=== PATIENT | female | born 1985 | race Caucasian/White ===

== ENCOUNTER 2025-04-02 19:52 | Inpatient (IN) | payer SELFPAY ==
[2025-04-02] VITALS (30 sets, daily range): BP systolic 104–113; BP diastolic 59–73; PULSE 78–95; RESP 12–26; TEMP 36.3; O2SAT 98–100
--- NOTE | 2025-04-02 20:21 | DI.CT_ITS ---
Exam(s) CT ABDOMEN PELVIS W EXAM: CT ABDOMEN PELVIS W CLINICAL HISTORY: diffuse abd pain, N, V TECHNIQUE: Imaging Protocol: Axial computed tomography images with coronal and sagittal reformatted images were created and reviewed. CONTRAST MATERIAL: Intravenous: Omnipaque 350 Contrast volume:75 mL Oral: No COMPARISON: CT RENAL COLIC WO CONTRAST from 04/20/2011 CT ABD PELVIS WITH CONTRAST from 02/05/2017 CT ABD PELVIS WITH CONTRAST from 02/05/2017 FINDINGS: ABDOMEN: Lung Bases: There is a small paraesophageal hernia. Liver: Normal density. No measurable mass. Portal, Superior Mesenteric, and Splenic Veins: Unremarkable. Gallbladder and Biliary Tract: Status post cholecystectomy. Stable appearance of the bile ducts. Pancreas: Normal density, no abnormal calcifications or inflammatory process. Spleen: Normal. Adrenals: No masses seen. Kidneys: Normal size, contour and axis. No radiodense stones or obstructive uropathy. No masses seen. Abdominal Aorta: Abdominal portion non-dilated. Bowel: The bowel is predominantly collapsed, but there are fluid-filled loops of small and large bowel present. There is question of mild wall thickening in loops of small bowel and large bowel. No evidence of bowel obstruction is seen. There is no evidence of an appendicitis. There is a 1.7 x 1.9 cm rounded soft tissue density in the left lower quadrant inferior to the sigmoid colon and anterior to the area of the left ovary (series 8, image 78). It appears to be in contact with the adjacent sigmoid colon. There is surrounding inflammation. Peritoneal Cavity: There is a small amount of pelvic ascites and a small amount of perihepatic ascites. No free air. Lymph Nodes: Within normal limits. Bones: Within normal limits for the patient's age. Soft Tissues: Unremarkable. PELVIS: Bladder: Symmetric distention, no gross wall thickening. Reproductive Organs: There is an IUD which appears in good position. Lymph Nodes: Within normal limits. Bones: Within normal limits for the patient's age. IMPRESSION: 1. Bowel wall thickening seen in loops of small and large bowel. There is a rounded soft tissue density in the left lower quadrant inferior to the sigmoid colon with associated inflammation. It measures 1.7 x 1.9 cm. Differential considerations include inflamed diverticulum, epiploic appendagitis, a bscess/phlegmon or other etiologies. Please correlate clinically. A follow-up CT scan is recommended for re-evaluation following treatment. 2. Small amount of abdominal pelvic ascites. 3. No pneumoperitoneum. 4. Stable size of the bile ducts when compared to 02/05/2017, status post cholecystectomy. RADIATION DOSE DELIVERED: 335.03mGy.cm Total DLP DATA REPOSITORY: All CT scans at this facility are submitted to the National Radiology Data Registry (NRDR) Dose Index Registry (DIR) with the [employer] (ACR). RADIATION OPTIMIZATION: All CT scans at this facility use at least one of these dose optimization techniques: automated exposure control; mA and/or kV adjustment per patient size (includes targeted exams where dose is matched to clinical indication); or iterative reconstruction.
--- NOTE | 2025-04-02 20:23 | W.ED.GENAD ---
Discharge Plan Disposition Patient Disposition: Admit to [facility] Condition: Stable Discharge Details Clinical Impression: Diverticulitis of intestine with abscess Primary Care Provider: Kaylynn,Local ED Provider: Lalitha Manzo Home Meds and New Rx's Prescriptions: No Action Mirena 1 EACH intrauterine device 1 unit VG DAILY permethrin 60 GM cream 60 gm Topical DIRECTED Qty: 1 0RF Rx Instructions: Applied to diffuse body from the chin down, leave on 8 hours then rinse. Repeat in 2 weeks time. HPI General Date/Time Provider Initiated Documentation: 04/02/25 20:17. HPI Narrative: The patient is a 39-year-old female with a prior history of cholecystectomy, ovarian tumor status post resection who comes the emergency department for abdominal pain. The patient reports symptom has been ongoing since the weekend. Reports it has been gradually getting worse. Reports she has vomited too many times to count. Denies eating unusual food or any known sick contacts. Denies changes in bowel habits. Reports her belly hurts all over. Reports she has not had a fever with this. Denies any chest pain or shortness of breath. Reports she is been unable to keep anything down and has not taken medication to help with her symptoms. She denies history of similar type problems in the past. Admits to decreased urine output but denies any urinary symptoms otherwise. Related Data Home Medications ?Medication ?Instructions ?Recorded ?Confirmed levonorgestrel (Mirena) 1 unit VG DAILY 02/05/17 04/02/25 permethrin 5 % topical cream 60 gm topical DIRECTED #1 tube 05/22/17 04/02/25 Previous Rx's ?Medication ?Instructions ?Recorded permethrin 5 % topical cream 60 gm topical DIRECTED #1 tube 05/22/17 Allergies Allergy/AdvReac Type Severity Reaction Status Date / Time ciprofloxacin (From Cipro) Allergy Intermediate SWELLING/FACE Unverified 04/02/25 20:02 ,RASH ORANGES Allergy Intermediate SWELLING,RA Uncoded 04/02/25 20:02 SH General Stated Complaint: Abd Prob LAMIN: 3 Review of Systems Narrative: Review of systems are negative except as mentioned. Exam Narrative Exam Narrative: General appearance: The patient is alert, has no immediate need for airway protection and no signs of toxicity. HEENT: Oral mucosal membranes are dry. Respiratory: There are no retractions. Lungs are clear to auscultation. Cardiovascular: Regular in rate and rhythm. Radial pulses are intact and equal. Gastrointestinal: The abdomen is soft and nondistended with normal bowel sounds. The patient has diffuse abdominal tenderness to palpation without rebound tenderness or rigidity but with guarding. Neurological: The patient is alert, awake and oriented x 3. Skin: Warm and dry. Back: The patient has bilateral CVA tenderness to palpation. Extremities: No lower extremity edema or calf tenderness. Course Vital Signs Vital signs: Vital Signs Temperature 36.3 C L 04/02/25 19:56 Pulse 83 04/02/25 19:56 Respiratory Rate 16 04/02/25 19:56 Blood Pressure 110/73 04/02/25 19:56 Pulse Oximetry 98 04/02/25 19:56 Temperature 36.3 C L 04/02/25 20:00 Pulse 83 04/02/25 20:00 Respiratory Rate 16 04/02/25 20:00 Blood Pressure 110/73 04/02/25 20:00 Pulse Oximetry 98 04/02/25 20:00 Pain Level 10 04/02/25 20:00 Medical Decision Making The patient does appear quite uncomfortable during my evaluation. She does have significant abdominal tenderness on exam. I told the patient of plan for blood work, urinalysis and imaging study. In the meantime I have ordered IV fluids, IV pain and nausea medication. The patient's blood work is back and it is unremarkable apart from mildly low potassium. I ordered IV potassium replacement and checked her magnesium level which is unremarkable. Her pain was under control with morphine however when she returned back from CAT scan patient reports her pain is returning so I ordered for repeat dose. CT is finally resulted and she has changes concerning fo diverticulitisr and suspicious for phlegmon/developing abscess. She has mild free fluid with associated peritoneal thickening at the pelvis suspicious for complicated fluid. I do have a page out for surgery at this point and I have started her on first dose of IV antibiotics, Zosyn. I have updated the patient and her partner over workup results thus far. I spoke with Dr. Rosales. Does not recommend surgical intervention tonight but agrees with IV antibiotics and admit to the hospitalist service with surgery consult. I then spoke with Dr. Glass who will be admitting the patient into his service. Imaging Data Radiologic Study: Imaging: CT Scan (abdomen and pelvis) Radiologist's impression: 1. Colonic diverticulosis. Wall thickening and inflammatory change at the sigmoid colon consistent with acute diverticulitis. Adjacent ill-defined fluid collection at the pericolonic fat suspicious for phlegmon/developing abscess 1.5 x 2 cm. 2. Mild free fluid, with associated peritoneal thickening at the pelvis suspicious for complicated fluid. 3. Biliary ductal dilatation post cholecystectomy. See above comments. 4. 1.4 cm low attenuation lesion at the right adnexa, possibly an ovarian cyst. PFSH All Active Problems (Updated 04/02/25 @ 23:47 by Lalitha Manzo DO) Diverticulitis of intestine with abscess (Acute) RLQ abdominal pain (Acute) Vaginal delivery (Acute 05/30/13) Surgical History (Updated 02/22/17 @ 11:29 by Ghazala Hough) Appendectomy (02/06/17) Social History Smoking/Tobacco Use Status: Former Tobacco Use Smoking risk assessment performed?: Yes Drug use: Never Do you feel safe in your relationship?: Yes History History Para 2 Hx # Term Pregnancies Multiple births Hx # Pregnancies Ectopic pregnancies AB induced Hx Number of Living Children AB spontaneous
[2025-04-02 20:29] LABS: Abs Immature Grans 0.03 10^3/uL (0.0-0.06); HCT 44.1 % (36.0-46.0); HGB 15.0 g/dL (11.2-15.7); Immature Grans % 0.3 %; MCH 28.4 pg (27.0-33.0); MCHC 34.0 % (32.0-36.0); MCV 84 fL (80-95); MPV 10.2 fL (8.0-11.0); Platelet Count 255 10^3/uL (130-400); RBC 5.28 10^6/uL (3.93-5.22); RDW 13.1 % (11.7-14.6); RDW-SD 39.6 fL; WBC 11.53 10^3/uL (4.4-10.8)
[2025-04-02] MEDS: MORPHine 4 MG/ML SYR IVP ×2 (20:33→22:12)
[2025-04-02] MEDS: Ondansetron 4 MG/2 ML VIAL IVP (20:33)
[2025-04-02] MEDS: Normal Saline 1,000 ML 1000 ML IV (20:34)
[2025-04-02 20:45] LABS: ALT 14 U/L (14-59); AST 13 U/L (15-37); Albumin 4.0 g/dL (3.4-5.0); Alkaline Phosphatase 69 U/L (46-116); Anion Gap 10.8 mmol/L (3-11); BUN 9 mg/dL (7-18); Bilirubin, Total 0.9 mg/dL (0.2-1.0); CO2 26.2 mmol/L (21.0-32.0); Calcium 9.5 mg/dL (8.5-10.1); Chloride 97 mmol/L (98-107); Estimated GFR 112.75 (mL/min/1.73m2); Glucose 122 mg/dL (74-106); Lipase 16 U/L (<78); Potassium 3.2 mmol/L (3.5-5.1); Sodium 134 mmol/L (136-145); Total Protein 8.7 g/dL (6.4-8.2)
[2025-04-02] MEDS: POTASSIUM CHLORIDE 10 MEQ/100 ML BAG 100 MEQ IV_INF (21:13)
[2025-04-02 21:25] LABS: HCG Qual (Serum) Negative
[2025-04-02 21:27] LABS: Magnesium 2.2 mg/dL (1.8-2.4)
[2025-04-02] MEDS: Normal Saline - Diluent 50 ML VIAL IJ (21:38)
[2025-04-02] MEDS: Omnipaque 350 MG/ML 100 ML BTL IJ (21:38)
--- NOTE | 2025-04-02 22:14 | NUR.NOTE ---
Pt states unable to give urine, FPJ
--- NOTE | 2025-04-02 22:56 | DI.VRAD_ITS ---
PROCEDURE INFORMATION: Exam: CT Abdomen And Pelvis With Contrast Exam date and time: 04/02/2025 9:36 PM Age: 39 years old Clinical indication: Nausea and vomiting; Abdominal pain; Additional info: Diffuse abd pain, n, v TECHNIQUE: Imaging protocol: Computed tomography of the abdomen and pelvis with contrast. Contrast material: OMNI 350; Contrast volume: 75 ml; Contrast route: INTRAVENOUS (IV); COMPARISON: No relevant prior studies available. FINDINGS: Diaphragm: Small hiatal hernia. Liver: Intrahepatic and common bile duct dilation with the common bile duct up to 7 mm. This may be within normal limits status post cholecystectomy, but a distal common duct obstruction or retained stone cannot be completely excluded. Correlate with clinical situation. Gallbladder and biliary ducts: Gallbladder surgically absent. Pancreas: Normal. No ductal dilation. Spleen: Normal. No splenomegaly. Adrenal glands: Normal. No mass. Kidneys and ureters: Normal. No hydronephrosis. Stomach and bowel: Colonic diverticulosis. Wall thickening and inflammatory change at the sigmoid colon consistent with acute diverticulitis. Adjacent ill-defined fluid collection at the pericolonic fat suspicious for phlegmon/developing abscesss 1.5 x 2 cm. Appendix: No evidence of appendicitis. Intraperitoneal space: Mild free fluid, with associated peritoneal thickening at the pelvis suspicious for complicated fluid. Vasculature: Unremarkable. No abdominal aortic aneurysm. Lymph nodes: Unremarkable. No enlarged lymph nodes. Urinary bladder: Unremarkable as visualized. Reproductive: Intrauterine device present in satisfactory position. 1.4 cm low attenuation lesion at the right adnexa, possibly an ovarian cyst. Bones/joints: Unremarkable. No acute fracture. Soft tissues: Unremarkable. IMPRESSION: 1. Colonic diverticulosis. Wall thickening and inflammatory change at the sigmoid colon consistent with acute diverticulitis. Adjacent ill-defined fluid collection at the pericolonic fat suspicious for phlegmon/developing abscesss 1.5 x 2 cm. 2. Mild free fluid, with associated peritoneal thickening at the pelvis suspicious for complicated fluid. 3. Biliary ductal dilatation post cholecystectomy. See above comments. 4. 1.4 cm low attenuation lesion at the right adnexa, possibly an ovarian cyst. Dictated and Authenticated by: Brijesh Kc MD. Orderin Jovany Doty MD
[2025-04-02 23:09] LABS: Glucose Negative (Negative)
[2025-04-02 23:24] LABS: C & S Indicated? No; RBC 0-2 HPF (0-2); WBC 0-2 HPF (0-5)
[2025-04-02] MEDS: PIPERACILLIN/TAZO 3.375 GM in Normal Saline 50 ML IVPB (23:37)
[2025-04-03] VITALS (9 sets, daily range): BP systolic 71–106; BP diastolic 46–69; PULSE 51–87; RESP 12–18; TEMP 36.2–37; O2SAT 97–99
--- NOTE | 2025-04-03 00:03 | HPE_ITS ---
Date of service: 04/03/25 Time of Service: 00:04 Assessment and Plan Assessment and plan (1) Diverticulitis of intestine with abscess: Status: Acute Assessment and plan: Will place surgical consult. Patient started on Zosyn. Most likely for OR in the morning. (2) Nausea: Status: Acute Assessment and plan: Add Zofran. (3) Hypokalemia: Status: Acute Assessment and plan: Replacement with IV fluids. DVT prophylaxis-pending surgery we will not put on any chemical prophylaxis and as she is young do not think she needs any SCDs or teds. (4) Tobacco abuse: Status: Acute Assessment and plan: Did add nicotine replacement therapy if the patient wants this. History of Present Illness History of Present Illness Chief Complaint: abd pain Narrative: This is a 39-year-old female who is seen essentially good health who presents with a 1 day history of worsening abdominal pain mostly on the left side. Patient came into the ED for further evaluation and treatment and was noted to have diverticulitis with possible abscess. General surgery was called and will see the patient in the morning. They asked that we admit her to our service. Patient states that she has had anesthesia before without any problems. Patient does smoke but does not want any nicotine replacement. Patient denies any alcohol use. Patient states that her allergy to Cipro is basically causes a rash. Patient also endorses multiple episodes of vomiting. No significant sick contacts. Patient does have a history of cholecystectomy as well as ovarian tumor postresection patient's had her nausea and vomiting pain for over 5 days Review of Systems All systems reviewed & are unremarkable except as noted in HPI and below PFSH All Active Problems (Updated 04/03/25 @ 00:09 by Franko Glass MD) Tobacco abuse (Acute) Hypokalemia (Acute) Nausea (Acute) Diverticulitis of intestine with abscess (Acute) RLQ abdominal pain (Acute) Vaginal delivery (Acute 05/30/13) Surgical History (Updated 02/22/17 @ 11:29 by Ghazala Hough) Appendectomy (02/06/17) Social History Smoking/Tobacco Use Status: Former Tobacco Use Smoking risk assessment performed?: Yes Drug use: Never Do you feel safe in your relationship?: Yes History History 2 Para 2 Hx # Term Pregnancies Multiple births Hx # Pregnancies Ectopic pregnancies AB induced Hx Number of Living Children AB spontaneous Meds Allergies and Home Medications Allergies Allergy/AdvReac Type Severity Reaction Status Date / Time ciprofloxacin (From Cipro) Allergy Intermediate SWELLING/FACE Unverified 04/02/25 20:02 ,RASH ORANGES Allergy Intermediate SWELLING,RA Uncoded 04/02/25 20:02 SH Home Medications ?Medication ?Instructions ?Recorded ?Confirmed ?Type levonorgestrel (Mirena) 1 unit VG DAILY 02/05/1712/22 History permethrin 5 % topical cream 60 gm topical DIRECTED #1 tube 05/22/17 04/02/25 Rx Exam Narrative Exam Narrative: HEENT-normocephalic atraumatic mucous membranes dry extract motions are intact pupils equal round reactive to light Neck-no lymphadenopathy no JVD no thyromegaly Cardiovascular-regular rate and rhythm no murmur rubs gallops Lungs-clear to auscultation bilaterally with good air exchange Abdomen-tenderness to palpation in all quadrants most mostly in the left lower quadrant Extremities-no sinus clubbing or edema Neurologic-cranial nerves II through XII intact as tested reflexes in upper lower extremity normal as tested Psych-patient is tearful but is able to give a linear history. Results Labs 04/02/25 20:18 04/02/25 20:18 Labs: Laboratory Results - last 24 hr 04/02/25 04/02/25 20:18 22:58 WBC 11.53 H RBC 5.28 H Hgb 15.0 Hct 44.1 MCV 84 MCH 28.4 MCHC 34.0 RDW 13.1 Plt Count 255 MPV 10.2 Immature Gran % 0.3 Neutrophils % 78.3 Lymphocytes % 15.5 Monocytes % 5.3 Eosinophils % 0.3 Basophils % 0.3 Nucleated RBC % 0.0 Absolute Neutrophils 9.03 H Absolute Lymphocytes 1.79 Absolute Monocytes 0.61 Absolute Eosinophils 0.03 Absolute Basophils 0.03 Sodium 134 L Potassium 3.2 L Chloride 97 L Carbon Dioxide 26.2 Anion Gap 10.8 BUN 9 Creatinine 0.7 Est GFR (CKD-EPI 2020) 112.75 Glucose 122 H Calcium 9.5 Magnesium 2.2 Total Bilirubin 0.9 AST 13 L ALT 14 Alkaline Phosphatase 69 Total Protein 8.7 H Albumin 4.0 Lipase 16 Serum HCG, Qual Negative Urine Color Yellow Urine Clarity Clear Urine pH 6.5 Ur Specific [place] <= 1.005 Urine Protein Negative Urine Ketones 40 H Urine Blood Trace-intact H Urine Nitrite Negative Urine Bilirubin Negative Urine Urobilinogen 2.0 H Ur Leukocyte Esterase Negative Urine RBC 0-2 Urine WBC 0-2 Ur Epithelial Cells Few Urine Crystals Negative Urine Bacteria Few Urine Casts Negative Urine Mucus Moderate Ur Culture Indicated? No Urine Glucose Negative Last Vital Signs Temp 36.3 C L 04/02/25 20:00 Pulse 85 04/02/25 23:27 Resp 18 04/02/25 23:27 BP 113/62 04/02/25 23:27 Pulse Ox 100 04/02/25 21:16 Time Spent Time spent with Patient: <40 minutes Time was spent: preparing to see the patient(eg.review tests), obtaining and/or reviewing separately otained hiistory, ordering medications,tests, procedures, referring, communicating with other health student career development specialist, indepentently interpreting results, counseling the patient and care coordination
--- NOTE | 2025-04-03 00:33 | W.PC.ACHO ---
Registration Status: REG ER Primary Language: Preferred Language: Khmer ED Information & Data Chief Complaint Abd Prob 04/02/25 20:25 Triage Note over the weekend pt 04/02/25 19:56 described throbbing pain intermittently, now more consistent and pain worse. nausea, pt describes brown vomit. last episode 30 mins ago, no stool changes , no urinary changes. Appendectomy (02/06/17) Most Recent Vital Signs Temperature 36.3 C L 04/02/25 20:00 Pulse 85 04/02/25 23:27 Pulse Rhythm Regular 04/02/25 21:16 Pulse 95 H 04/02/25 23:27 Respiratory Rate 18 04/02/25 23:27 Respiratory Effort Normal 04/02/25 21:16 Respiratory Depth Normal 04/02/25 21:16 Respiratory Pattern Normal 04/02/25 21:16 Blood Pressure 113/62 04/02/25 23:27 Blood Pressure Mean 77 04/02/25 23:27 Blood Pressure Position Supine 04/02/25 21:16 Pulse Oximetry 100 04/02/25 21:16 Oxygen Delivery Method Room Air 04/02/25 21:16 Oxygen Flow Rate 0 04/02/25 21:16 Pain Level 10 04/02/25 20:00 Allergies ciprofloxacin (From Cipro) Allergy (Intermediate, Verified 04/03/25 00:23) SWELLING/FACE ,RASH ORANGES Allergy (Intermediate, Uncoded 04/03/25 00:23) SWELLING,RASH Active Medications Generic Name Dose Route Start Last Admin Trade Name Freq PRN Reason Stop Dose Admin Iohexol 100 ml 04/02/25 21:45 04/02/25 21:38 Omnipaque 350 Mg/Ml 100 Ml Btl IJ 05/02/25 23:59 75 ml DIRECTED NADIR Administration Sodium Chloride 50 ml 04/02/25 21:45 04/02/25 21:38 Normal Saline - Diluent 50 Ml Vial IJ 50 ml .FOR DI USE NADIR Administration IV IV Catheter Type [Right Saline Lock Antecubital] IV Catheter Gauge [Right 18 Antecubital] Diet Orders Category Date Time Status Nothing Per Oral [DIET] Nutrition 04/04/25 00:01 Ordered Diagnostics 04/03/25 04/02/25 04/02/25 Range/Units 05:35 22:58 20:18 WBC Pending 11.53 H (4.4-10.8) 10^3/uL RBC Pending 5.28 H (3.93-5.22) 10^6/uL Hgb Pending 15.0 (11.2-15.7) g/dL Hct Pending 44.1 (36.0-46.0) % MCV Pending 84 (80-95) fL MCH Pending 28.4 (27.0-33.0) pg MCHC Pending 34.0 (32.0-36.0) % RDW Pending 13.1 (11.7-14.6) % Plt Count Pending 255 (130-400) 10^3/uL MPV Pending 10.2 (8.0-11.0) fL Immature Gran % Pending 0.3 % Neutrophils % Pending 78.3 % Lymphocytes % Pending 15.5 % Monocytes % Pending 5.3 % Eosinophils % Pending 0.3 % Basophils % Pending 0.3 % Nucleated RBC % 0.0 (0.0-0.3) % Absolute Neutrophils Pending 9.03 H (1.2-6.7) 10^3/uL Absolute Lymphocytes Pending 1.79 (1.2-3.4) 10^3/uL Absolute Monocytes Pending 0.61 (0.1-0.8) 10^3/uL Absolute Eosinophils Pending 0.03 (0.0-0.7) 10^3/uL Absolute Basophils Pending 0.03 (0.0-0.2) 10^3/uL Sodium Pending 134 L (136-145) mmol/L Potassium Pending 3.2 L (3.5-5.1) mmol/L Chloride Pending 97 L (98-107) mmol/L Carbon Dioxide Pending 26.2 (21.0-32.0) mmol/L Anion Gap Pending 10.8 (3-11) mmol/L BUN Pending 9 (7-18) mg/dL Creatinine Pending 0.7 (0.55-1.02) mg/dL Est GFR (CKD-EPI 2020) Pending 112.75 (mL/min/1.73m2) Glucose Pending 122 H (74-106) mg/dL Calcium Pending 9.5 (8.5-10.1) mg/dL Magnesium 2.2 (1.8-2.4) mg/dL Total Bilirubin Pending 0.9 (0.2-1.0) mg/dL AST Pending 13 L (15-37) U/L ALT Pending 14 (14-59) U/L Alkaline Phosphatase Pending 69 (46-116) U/L Total Protein Pending 8.7 H (6.4-8.2) g/dL Albumin Pending 4.0 (3.4-5.0) g/dL Lipase 16 (<78) U/L Serum HCG, Qual Negative Urine Color Yellow (Yellow) Urine Clarity Clear (Clear) Urine pH 6.5 (5-8) Ur Specific [place] <= 1.005 (1.005-1.025) Urine Protein Negative (Neg-Trace) mg/dL Urine Ketones 40 H (Negative) mg/dL Urine Blood Trace-intact H (Negative) Urine Nitrite Negative (Negative) Urine Bilirubin Negative (Negative) Urine Urobilinogen 2.0 H (Up to 0.2) mg/dL Ur Leukocyte Esterase Negative (Negative) Urine RBC 0-2 (0-2) HPF Urine WBC 0-2 (0-5) HPF Ur Epithelial Cells Few (Negative) HPF Urine Crystals Negative (Negative) HPF Urine Bacteria Few (Negative) HPF Urine Casts Negative (Negative) LPF Urine Mucus Moderate (Negative) Ur Culture Indicated? No Urine Glucose Negative (Negative) mg/dL Intake and Output - 24 Hour Total 04/02/25 19:52 thru 04/02/25 22:38 Intake Total 1100 Balance 1100 Weight 65.771 kg Intake: IV 1100 Falls Risk Assessment History of Falls No History 04/02/25 22:08 Contributing Factors No Factors 04/02/25 22:08 Ambulatory Aids Independent 04/02/25 22:08 Tubes/Lines None 04/02/25 22:08 Gait Evaluation No gait disturbance 04/02/25 22:08 Cognition No cognitive impairment 04/02/25 22:08 Fall Total Score 0 04/02/25 22:08 Level of Risk Standard/Low Risk 04/02/25 22:08 Problems Tobacco abuse (Acute) Hypokalemia (Acute) Nausea (Acute) Diverticulitis of intestine with abscess (Acute) Notes 04/02/25 22:14 Nursing Notes by Tripp Vázquez Pt states unable to give urine, FPJ Initialized on 08/04/25 22:14 - END OF NOTE v v v v v v v v v Sending and/or Receiving Nurses: Please use comment section below to note any information pertinent to the patient hand-off not included above. Information / Comments: Complains severe abd pain at the ED, surgical consult ordered, given medications and fluid morphine 4mg IVP x2, zofran IVP, NS bolus, Pip/darío 3.375gm IV, potassium 10 meq. A/O answer questions appropriately, get up and ambulate independently, 18g IV right AC. Report received from: Tripp Rodríguez, [employer] Receiving Clerk
[2025-04-03] MEDS: POTASSIUM CHLORIDE/D5-0.45NACL 1,000 ML 100 MEQ IV (00:52)
[2025-04-03] MEDS: MORPHine 2 MG/ML SYR IVP ×3 (01:03→07:50)
[2025-04-03] MEDS: Normal Saline Flush 10 ML SYR (01:04)
[2025-04-03] MEDS: Normal Saline Flush 10 ML SYR IVP ×5 (03:56→20:24)
[2025-04-03 07:34] LABS: Abs Immature Grans 0.07 10^3/uL (0.0-0.06); HCT 38.6 % (36.0-46.0); HGB 13.2 g/dL (11.2-15.7); Immature Grans % 0.5 %; MCH 29.0 pg (27.0-33.0); MCHC 34.2 % (32.0-36.0); MCV 85 fL (80-95); MPV 10.2 fL (8.0-11.0); Platelet Count 212 10^3/uL (130-400); RBC 4.55 10^6/uL (3.93-5.22); RDW 13.1 % (11.7-14.6); RDW-SD 40.7 fL; WBC 15.12 10^3/uL (4.4-10.8)
[2025-04-03 07:39] LABS: ALT 40 U/L (14-59); AST 61 U/L (15-37); Albumin 2.9 g/dL (3.4-5.0); Alkaline Phosphatase 85 U/L (46-116); Anion Gap 4.7 mmol/L (3-11); BUN 5 mg/dL (7-18); Bilirubin, Total 1.7 mg/dL (0.2-1.0); CO2 27.3 mmol/L (21.0-32.0); Calcium 8.3 mg/dL (8.5-10.1); Chloride 104 mmol/L (98-107); Estimated GFR 112.75 (mL/min/1.73m2); Glucose 112 mg/dL (74-106); Potassium 3.8 mmol/L (3.5-5.1); Sodium 136 mmol/L (136-145); Total Protein 6.8 g/dL (6.4-8.2)
--- NOTE | 2025-04-03 08:52 | INITIAL_ITS ---
Date of service: 04/03/25 Time of Service: 08:53 Care Management Initial Assmt Initial Assessment Reason for Hospitalization: Diverticulitis Functional Status/Living Situation Patient Presentation: Kanika was awake and lying in bed when CM met with her, she is accompanied by her friend Rubén. Kanika is admitted for diverticulitis, had has a surgical consult ordered. Kanika reports that she resides in [place] but is currently in the process of relocating to [facility]. She is insured through the [facility] and is unsure about her coverage limitations while receiving care in [facility]. CM discussed this with the patient and encouraged her to follow up with her insurer to clarify coverage and potential limitations. Given her transitional status and anticipated relocation, CM placed a referral to [facility] for assistance for support with local resources and other community based needs. Kanika was also encouraged to establish care with a local primary care provider (of choice) once settled and given a list of local PCP's. CM will continue to follow. Town of Residence: [place], [place] in the process of relocating to [facility] Resides with: Other (friend Rubén Gupta) Employment Status: Employed ([employer] in [place]) Instrumental Activities of Daily Living (ADLs): Independent Medications Medication Management: No Issues/Barriers identified Physical Functioning/Mobility Assistive Device: None Advance Directives Advance Directives: Do you have an Advance Directive: N , 11:12 AD On File at [facility]: N 02/17/13, 11:12 Date Asked 04/02/25 04/02/25, 19:57 AD Date Reviewed COLST On File at [facility] COLST Date Scanned Code Status Resuscitation Status Full Code Insurance Coverage/Financial Issues Insurance: [place] (State insurance, does not have insurance card with her) Financial Issues: Kanika is in the process of relocating to [facility], she currently has medical coverage through the [facility] and is unsure what the limitations are with medical coverage out of state. She is interested in a referral to [facility] to discuss resources and potentially financial assistance through [facility]. Care Team Visit Care Team Role Provider Type Sari Real APRN MD [facility] STAFF PHYSICIAN [facility] Primary Care Provider NON-[facility] STAFF PHYSICIAN Lalitha Manzo DO Emergency Provider [facility] STAFF PHYSICIAN Franko Glass MD Admit Provider [facility] STAFF PHYSICIAN Attending Provider Other Providers Discharge Potential Discharge Needs: PCP F/U Appt (No local PCP) Anticipated Barriers to Discharge: None Identified Patient/Family Education Needs: Review discharge instructions, discuss Ask Me Three Transportation: Private vehicle Plan: Kanika is being closely monitored and treated for diverticulitis. Discharge is anticipated home via private vehicle with her friend Rubén, once medically cleared. A surgical consult is pending. No new services are anticipated at this time. A referral to [facility] has been made. and it is recommended that the patient establish care with a PCP locally, if she is planning to relocate. CM will continue to follow. Social Determinants of Health Screening Will the Patient Participate in the Screening?: Declined to provide PFSH All Active Problems (Updated 04/03/25 @ 00:09 by Franko Glass MD) Tobacco abuse (Acute) Hypokalemia (Acute) Nausea (Acute) Diverticulitis of intestine with abscess (Acute) RLQ abdominal pain (Acute) Vaginal delivery (Acute 05/30/13) Surgical History (Updated 02/22/17 @ 11:29 by Ghazala Hough) Appendectomy (02/06/17) Social History Smoking/Tobacco Use Status: Former Tobacco Use Smoking risk assessment performed?: Yes Drug use: Never Housing: house Do you feel safe in your relationship?: Yes History History Para 2 Hx # Term Pregnancies Multiple births Hx # Pregnancies Ectopic pregnancies AB induced Hx Number of Living Children AB spontaneous
[2025-04-03] MEDS: PIPERACILLIN/TAZO 4.5 GM in Normal Saline 100 ML IVPB ×4 (09:08→20:23)
--- NOTE | 2025-04-03 09:26 | W.PM.PROGNOT ---
Date of Service Date of service: 04/03/25 Time of Service: 09:26 Assessment and Plan Assessment and plan (1) Diverticulitis of intestine with abscess: Status: Acute Assessment and plan: Not meeting sepsis criteria on admission with WBC at 11.53 , with tachypnea RR 26 and intra-abdominal infectious source Blood cultures ordered Ongoing Zosyn. WBC up to 15 from 11 Ongoing surgical consult with Dr. Leiva: most likely pelvic enteritis - repeat CT tomorrow with oral contrast NPO - and ongoing IVF - LR now No OR in the morning mentioned in admitting notes. labs in AM (2) Hypotension: Status: Acute Assessment and plan: SBP reported 84 by RN s/p pain RX LR 500 bolus and re-evaluate (3) Abdominal pain: Status: Acute Assessment and plan: PRN acetaminophen added RPN hydromorphone - morphine was not effective (4) Nausea: Status: Acute Assessment and plan: PRN Zofran. and compazine IV PPI (5) Hypokalemia: Status: Acute Assessment and plan: Resolved BMP in AM (6) Tobacco abuse: Status: Acute Assessment and plan: PRN NRT (7) On deep vein thrombosis (DVT) prophylaxis: Status: Acute Assessment and plan: SCD's TEDs No pharmacological prophylaxis -re: OR possibility Discussed with Dr. Gage Subjective Subjective Patient reports: still having pain, voiding w/o difficulty and nausea; denies tolerating liquids well, tolerating a regular diet, no flatus, no bowel movement, diarrhea, vomiting, shortness of breath or fever Exam Narrative Exam Narrative: Alert & oriented X3 , ongoing abdominal pain/ cramping, no focal neurological deficits, clear lungs, S1 - S2 , no murmur, abdomen is non-distended , soft with diffused tenderness increased to LLQ, no CVA tenderness Objective Last Vital Signs Temp 36.9 C 04/03/25 07:13 Pulse 87 04/03/25 07:13 Resp 16 04/03/25 07:13 BP 99/65 L 04/03/25 07:13 Pulse Ox 97 04/03/25 07:13 Laboratory Results - last 24 hr 04/02/25 04/02/25 04/03/25 20:18 22:58 07:15 WBC 11.53 H 15.12 H RBC 5.28 H 4.55 Hgb 15.0 13.2 Hct 44.1 38.6 MCV 84 85 MCH 28.4 29.0 MCHC 34.0 34.2 RDW 13.1 13.1 Plt Count 255 212 MPV 10.2 10.2 Immature Gran % 0.3 0.5 Neutrophils % 78.3 82.6 Lymphocytes % 15.5 10.2 Monocytes % 5.3 6.4 Eosinophils % 0.3 0.1 Basophils % 0.3 0.2 Nucleated RBC % 0.0 0.0 Absolute Neutrophils 9.03 H 12.49 H Absolute Lymphocytes 1.79 1.54 Absolute Monocytes 0.61 0.97 H Absolute Eosinophils 0.03 0.02 Absolute Basophils 0.03 0.03 Sodium 134 L 136 Potassium 3.2 L 3.8 Chloride 97 L 104 Carbon Dioxide 26.2 27.3 Anion Gap 10.8 4.7 BUN 9 5 L Creatinine 0.7 0.7 Est GFR (CKD-EPI 2020) 112.75 112.75 Glucose 122 H 112 H Calcium 9.5 8.3 L Magnesium 2.2 Total Bilirubin 0.9 1.7 H AST 13 L 61 H ALT 14 40 Alkaline Phosphatase 69 85 Total Protein 8.7 H 6.8 Albumin 4.0 2.9 L Lipase 16 Serum HCG, Qual Negative Urine Color Yellow Urine Clarity Clear Urine pH 6.5 Ur Specific [place] <= 1.005 Urine Protein Negative Urine Ketones 40 H Urine Blood Trace-intact H Urine Nitrite Negative Urine Bilirubin Negative Urine Urobilinogen 2.0 H Ur Leukocyte Esterase Negative Urine RBC 0-2 Urine WBC 0-2 Ur Epithelial Cells Few Urine Crystals Negative Urine Bacteria Few Urine Casts Negative Urine Mucus Moderate Ur Culture Indicated? No Urine Glucose Negative PAWSS Have you Been Recently Intoxicated or Drunk Within the Last 30 days?: No Have you Ever Experienced Previous Episodes of Alcohol Withdrawal?: No Have you ever Experienced Withdrawal Seizures?: No Have you ever Experienced Delirium Tremens(DT)s?: No Have you ever undergone Alcohol Rehabilitation Treatment (i.e, inpt ot outpatient treatment programs)?: No Have you ever Experienced Blackouts?: No Have you ever Combined Alcohol with other Downers within the last 90 days?: No Have you ever Combined Alcohol with any other Substance of Abuse during the last 90 days?: No Positive Blood Alcohol level on Presentation? [PCS.BAL]: No Evidence of Increased Autonomic Activity (i.e. HR>120, tremor, sweating, agitation, nausea)?: No Result: 0 Time Spent with Patient Time Spent with Patient: >50 minutes Time was spent: preparing to see the patient(eg.review tests), obtaining and/or reviewing separately otained hiistory, ordering medications,tests, procedures, referring, communicating with other health healthcare financial analyst, indepentently interpreting results, counseling the patient and care coordination
[2025-04-03] MEDS: Lactated Ringers 1,000 ML 100 ML IV (10:43)
[2025-04-03 10:46] LABS: C-Reactive Protein 15.37 mg/dL (<or=0.5)
[2025-04-03] MEDS: ACETAMINOPHEN 1,000 MG/100 ML BAG 400 MG IVPB (11:59)
[2025-04-03] MEDS: HYDROmorphone 2 MG/ML SYR IVP (12:22)
[2025-04-03] MEDS: Ondansetron 4 MG/2 ML VIAL IVP (13:16)
[2025-04-03] MEDS: Lactated Ringers 500 ML IV (14:10)
[2025-04-03] MEDS: Pantoprazole 40 MG VIAL IVP (14:44)
--- NOTE | 2025-04-03 16:16 | CHAPLAIN ---
Kanika was sleeping when I visited. I spoke with the other person in the room (her friend, Rubén?), explained my role and offered support.
--- NOTE | 2025-04-03 17:06 | SCONE_ITS ---
Date of service: 04/03/25 Time of Service: 17:07 Assessment and Plan Assessment and plan (1) Abdominal pain: Status: Acute Assessment and plan: Reviewed patient's CT scan today with on-call radiologist Dr. Franko Graves. There is some thickening of the small bowel near the pelvis as well as the sigmoid. Just superior to the sigmoid there is an odd appearing diverticulum with some surrounding inflammation. There is fluid in the pelvis which does not appear to be inflamed nor infected. Not typical for diverticulitis. Suspect ruptured ovarian cyst given her history of similar cysts, as below. (2) Abdominal fluid collection: Status: Acute Assessment and plan: In 2017 patient had similar type abdominal pain, underwent a diagnostic laparoscopy, was found to have a ruptured right ovarian cyst, and incidental appendectomy was performed at that time, the pathology from this was unremarkable. 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 Likely the changes that are seen just superior to the sigmoid reflect surgical scarring from prior oophorectomy. Will repeat the patient's CT scan with oral contrast only. Will consult on-call fws faculty assistant for suspected ruptured ovarian cyst, and pelvic pain. (3) Nausea & vomiting: Status: Acute Assessment and plan: Patient with some retching when she was seen today, will provide oral Phenergan prior to oral contrast. IV/IM Phenergan is not available here. (4) Hypokalemia: Status: Acute Assessment and plan: Was replaced yesterday, and is normal today. History of Present Illness History of Present Illness Chief Complaint: Abdominal pain Narrative: Ms. Diego is a 39-year-old female, she has a history of left-sided ovarian desmoid tumor, and right-sided ruptured ovarian cyst in the remote past, who presents to the hospital with 24 hours of acute onset of lower abdominal pain in the suprapubic region and pelvis. This is associated with nausea and vomiting. Patient reports no changes in bowel function. No hematochezia or melena. No dysuria no hematuria. She reports regular frequency menstrual cycles, that has been quite heavy in volume for the past few years. Review of Systems All systems reviewed & are unremarkable except as noted in HPI and below PFSH All Active Problems (Updated 04/03/25 @ 17:31 by Cricket Leiva MD) Nausea & vomiting (Acute) Abdominal fluid collection (Acute) Abdominal pain (Acute) Hypotension (Acute) On deep vein thrombosis (DVT) prophylaxis (Acute) Sepsis (Acute) Tobacco abuse (Acute) Hypokalemia (Acute) Nausea (Acute) Diverticulitis of intestine with abscess (Acute) RLQ abdominal pain (Acute) Vaginal delivery (Acute 05/30/13) Surgical History Appendectomy (02/06/17) Social History Smoking/Tobacco Use Status: Former Tobacco Use Smoking risk assessment performed?: Yes Drug use: Never Housing: house Do you feel safe in your relationship?: Yes History History 2 Para 2 Hx # Term Pregnancies Multiple births Hx # Pregnancies Ectopic pregnancies AB induced Hx Number of Living Children AB spontaneous Exam Narrative Exam Narrative: Patient is an adult female, she is tired, and sleeping when entering the room. (She was just given Dilaudid prior to entering). Her nurse was present in the room at time of history and examination. The patient has a thin body habitus, she appears somewhat disheveled. Her cardiac exam is regular rate and rhythm without gross murmur. Her pulmonary exam is clear to auscultation bilaterally. Her abdomen has prior surgical scars from cholecystectomy, appendectomy and oophorectomy. Abdomen has normal active bowel sounds, it is nondistended there is no guarding or rigidity there is tenderness in the suprapubic region, and just above the inguinal ligaments bilaterally. Results Last Vital Signs Temp 36.2 C L 04/03/25 15:38 Pulse 51 L 04/03/25 15:38 Resp 12 04/03/25 15:38 BP 90/50 L 04/03/25 16:18 Pulse Ox 97 04/03/25 12:15 Labs 04/03/25 07:15 04/03/25 07:15 Labs: Laboratory Results - last 24 hr 04/02/25 04/02/25 04/03/25 20:18 22:58 07:15 WBC 11.53 H 15.12 H RBC 5.28 H 4.55 Hgb 15.0 13.2 Hct 44.1 38.6 MCV 84 85 MCH 28.4 29.0 MCHC 34.0 34.2 RDW 13.1 13.1 Plt Count 255 212 MPV 10.2 10.2 Immature Gran % 0.3 0.5 Neutrophils % 78.3 82.6 Lymphocytes % 15.5 10.2 Monocytes % 5.3 6.4 Eosinophils % 0.3 0.1 Basophils % 0.3 0.2 Nucleated RBC % 0.0 0.0 Absolute Neutrophils 9.03 H 12.49 H Absolute Lymphocytes 1.79 1.54 Absolute Monocytes 0.61 0.97 H Absolute Eosinophils 0.03 0.02 Absolute Basophils 0.03 0.03 VBG Lactate Sodium 134 L 136 Potassium 3.2 L 3.8 Chloride 97 L 104 Carbon Dioxide 26.2 27.3 Anion Gap 10.8 4.7 BUN 9 5 L Creatinine 0.7 0.7 Est GFR (CKD-EPI 2020) 112.75 112.75 Glucose 122 H 112 H Calcium 9.5 8.3 L Magnesium 2.2 Total Bilirubin 0.9 1.7 H AST 13 L 61 H ALT 14 40 Alkaline Phosphatase 69 85 C-Reactive Protein 15.37 H Total Protein 8.7 H 6.8 Albumin 4.0 2.9 L Lipase 16 Serum HCG, Qual Negative Urine Color Yellow Urine Clarity Clear Urine pH 6.5 Ur Specific [place] <= 1.005 Urine Protein Negative Urine Ketones 40 H Urine Blood Trace-intact H Urine Nitrite Negative Urine Bilirubin Negative Urine Urobilinogen 2.0 H Ur Leukocyte Esterase Negative Urine RBC 0-2 Urine WBC 0-2 Ur Epithelial Cells Few Urine Crystals Negative Urine Bacteria Few Urine Casts Negative Urine Mucus Moderate Ur Culture Indicated? No Urine Glucose Negative 04/03/25 14:30 WBC RBC Hgb Hct MCV MCH MCHC RDW Plt Count MPV Immature Gran % Neutrophils % Lymphocytes % Monocytes % Eosinophils % Basophils % Nucleated RBC % Absolute Neutrophils Absolute Lymphocytes Absolute Monocytes Absolute Eosinophils Absolute Basophils VBG Lactate 0.7 Sodium Potassium Chloride Carbon Dioxide Anion Gap BUN Creatinine Est GFR (CKD-EPI 2020) Glucose Calcium Magnesium Total Bilirubin AST ALT Alkaline Phosphatase C-Reactive Protein Total Protein Albumin Lipase Serum HCG, Qual Urine Color Urine Clarity Urine pH Ur Specific [place] Urine Protein Urine Ketones Urine Blood Urine Nitrite Urine Bilirubin Urine Urobilinogen Ur Leukocyte Esterase Urine RBC Urine WBC Ur Epithelial Cells Urine Crystals Urine Bacteria Urine Casts Urine Mucus Ur Culture Indicated? Urine Glucose Imaging Abdomen CT scan report/results: report reviewed and image reviewed
[2025-04-03] MEDS: Omnipaque 350 MG/ML 50 ML BTL PO (17:48)
--- NOTE | 2025-04-03 19:26 | OBCE_ITS ---
Date of service: 04/03/25 Time of Service: 19:26 Assessment and Plan Assessment and plan (1) Pelvic pain: Status: Acute Assessment and plan: 04/03/2025 (Matthew): 39-year-old -0-0-2 ( x 2) seen on consultation request from general surgery; thank you for allowing us to participate in the care of your patient. Ms. Diego's clinical presentation is concerning for generalized inflammation of the abdomen and pelvis most notably along the right side. She is at low risk for gynecological infections based on this factors and denies any potential associated signs or symptoms. She has an up-to-date Paragard in place and serum hcg is noted to be negative. Her gynecological history is not consistent with concerns for potential rupture of large ovarian cysts, and the potentially present cyst noted within the imaging is not a likely source of pathology. Even in the event of a ruptured ovarian cyst, it would be extremely unlikely to cause the extent of generalized inflammatory changes noted on the imaging and the breadth of the patient's reported symptoms. I do not find evidence or concern for a gynecological explanation of her CT findings or clinical presentation. The patient denied any vaginal complaints, and she reported feeling better; therefore, pelvic exam was deferred. That being said, if concerns persist for potential gynecological involvement and/or patient's treatment becomes refractory, I am happy to reevaluate and perform a full pelvic exam if necessary. At this time, I am more concerned for a gastrointestinal origin, especially given the diffuse nature of her symptoms and CT findings. A transvaginal ultrasound could be considered if there was any continued concern for right adnexal involvement, though this does not seem likely based on the images. I remain on-call through tomorrow morning and I can be reached at [phone] if there are any additional concerns or questions overnight. I will sign the patient out to my partners, and we are available as needed for further consultation. All of the above has been reviewed with the consulting physician, Dr. Leiva, and please do not hesitate to let me know if there is anything further you may need. History of Present Illness Narrative: This is a 39-year-old -0-0-2 ( x 2) presents to the hospital on the evening of Wednesday, April 02, 2025 for abrupt onset of generalized abdominal pain. Patient reports insidious onset of generalized abdominal discomfort over the course of the weekend until Wednesday, when the patient states she was grilling with her and suddenly became flushed and nauseous. She went and to try to lie down but was unable to find a comfortable position. She reports episodes of flushing with recurrent vomiting, which prompted her to be seen in the emergency department. While in the ED, patient had a CT scan that identified diffuse inflammatory changes most notably along the colon and report mentions concerns for possible ruptured diverticulitis. Ms. Diego is noted to have a history of dermoid cyst that was resected as part of a left-sided salpingo-oophorectomy in 2010. She is also noted to have undergone an appendectomy in 2012 during which a ruptured right sided ovarian cyst was incidentally noted. Patient otherwise denies any known history of gynecological pathology. She reports a history of unremarkable.'s that are regular in timing prior to the placement of her current ParaGard. Since placement of her ParaGard, she reports heavier menses which is consistent with predictable effects of ParaGard placement. Her periods remain predictable and timing, and she reports a first day last menstrual period of approximately 2 weeks ago, though she states she does not track them. She denies dysmenorrhea. She is sexually active in a committed, heterosexual relationship. They have been together for several years and she denies any concerns for infidelity. She denies any current vaginal itching, burning, irritation, or discharge, and she denies any vaginal bleeding during her current episode of pain. She also denies any history of any STDs or vaginal infections. Since being hospitalized, Ms. Diego has been initiated on Zosyn and reports notable improvement in her pain as of today. She states the tenderness is still there and diffuse across the entirety of her abdomen and pelvis, but it is improved. Review of Systems All systems reviewed & are unremarkable except as noted in HPI and below PFSH All Active Problems (Updated 04/03/25 @ 20:03 by Shivani Castro DO) Pelvic pain (Acute) Nausea & vomiting (Acute) Abdominal fluid collection (Acute) Abdominal pain (Acute) Hypotension (Acute) On deep vein thrombosis (DVT) prophylaxis (Acute) Sepsis (Acute) Tobacco abuse (Acute) Hypokalemia (Acute) Nausea (Acute) Diverticulitis of intestine with abscess (Acute) RLQ abdominal pain (Acute) Vaginal delivery (Acute 05/30/13) Surgical History Appendectomy (02/06/17) Social History Smoking/Tobacco Use Status: Former Tobacco Use Smoking risk assessment performed?: Yes Drug use: Never Housing: house Do you feel safe in your relationship?: Yes History History 2 Para 2 Hx # Term Pregnancies Multiple births Hx # Pregnancies Ectopic pregnancies AB induced Hx Number of Living Children AB spontaneous Exam Narrative Exam Narrative: General: Well-nourished female in no immediate distress; resting comfortably in her bed laying on her back Pulmonary: No respiratory distress Abdomen: Soft, nondistended, tolerates palpation, but does exhibit some hesitancy with palpation most notably over the left lower quadrant. Bilateral flank tenderness. Extremities: No swelling Psych: Pleasant spirits; calm. Cooperative. : Deferred Results Last Vital Signs Temp 97.5 F L 04/03/25 19:11 Pulse 53 L 04/03/25 19:11 Resp 16 04/03/25 19:11 BP 96/56 L 04/03/25 19:11 Pulse Ox 99 04/03/25 19:11 Labs 04/03/25 07:15 04/03/25 07:15 Labs: Laboratory Results - last 24 hr 04/02/25 04/02/25 04/03/25 20:18 22:58 07:15 WBC 11.53 H 15.12 H RBC 5.28 H 4.55 Hgb 15.0 13.2 Hct 44.1 38.6 MCV 84 85 MCH 28.4 29.0 MCHC 34.0 34.2 RDW 13.1 13.1 Plt Count 255 212 MPV 10.2 10.2 Immature Gran % 0.3 0.5 Neutrophils % 78.3 82.6 Lymphocytes % 15.5 10.2 Monocytes % 5.3 6.4 Eosinophils % 0.3 0.1 Basophils % 0.3 0.2 Nucleated RBC % 0.0 0.0 Absolute Neutrophils 9.03 H 12.49 H Absolute Lymphocytes 1.79 1.54 Absolute Monocytes 0.61 0.97 H Absolute Eosinophils 0.03 0.02 Absolute Basophils 0.03 0.03 VBG Lactate Sodium 134 L 136 Potassium 3.2 L 3.8 Chloride 97 L 104 Carbon Dioxide 26.2 27.3 Anion Gap 10.8 4.7 BUN 9 5 L Creatinine 0.7 0.7 Est GFR (CKD-EPI 2020) 112.75 112.75 Glucose 122 H 112 H Calcium 9.5 8.3 L Magnesium 2.2 Total Bilirubin 0.9 1.7 H AST 13 L 61 H ALT 14 40 Alkaline Phosphatase 69 85 C-Reactive Protein 15.37 H Total Protein 8.7 H 6.8 Albumin 4.0 2.9 L Lipase 16 Serum HCG, Qual Negative Urine Color Yellow Urine Clarity Clear Urine pH 6.5 Ur Specific [place] <= 1.005 Urine Protein Negative Urine Ketones 40 H Urine Blood Trace-intact H Urine Nitrite Negative Urine Bilirubin Negative Urine Urobilinogen 2.0 H Ur Leukocyte Esterase Negative Urine RBC 0-2 Urine WBC 0-2 Ur Epithelial Cells Few Urine Crystals Negative Urine Bacteria Few Urine Casts Negative Urine Mucus Moderate Ur Culture Indicated? No Urine Glucose Negative 04/03/25 14:30 WBC RBC Hgb Hct MCV MCH MCHC RDW Plt Count MPV Immature Gran % Neutrophils % Lymphocytes % Monocytes % Eosinophils % Basophils % Nucleated RBC % Absolute Neutrophils Absolute Lymphocytes Absolute Monocytes Absolute Eosinophils Absolute Basophils VBG Lactate 0.7 Sodium Potassium Chloride Carbon Dioxide Anion Gap BUN Creatinine Est GFR (CKD-EPI 2020) Glucose Calcium Magnesium Total Bilirubin AST ALT Alkaline Phosphatase C-Reactive Protein Total Protein Albumin Lipase Serum HCG, Qual Urine Color Urine Clarity Urine pH Ur Specific [place] Urine Protein Urine Ketones Urine Blood Urine Nitrite Urine Bilirubin Urine Urobilinogen Ur Leukocyte Esterase Urine RBC Urine WBC Ur Epithelial Cells Urine Crystals Urine Bacteria Urine Casts Urine Mucus Ur Culture Indicated? Urine Glucose Imaging Additional studies: 04/02/2025 CT abdomen pelvis with IV contrast finds, intrahepatic and common bile duct dilation with the common bile duct up to 7 mm. This may be within normal limits status postcholecystectomy, but a distal common duct obstruction or retained stone cannot be completely excluded... No hydronephrosis... Colonic diverticulosis. Wall thickening and inflammatory change at the sigmoid colon consistent with acute diverticulitis. Adjacent ill-defined fluid collection at the pericolic fat suspicious for phlegmon/developing abscess/developing abscess 1.5 x 2 cm... Mild free fluid, with associated peritoneal thickening at the pelvis suspicious for complicated fluid... No enlarged lymph nodes. CT goes on to note the presence of an IUD in satisfactory position as well as the possibility of a 1.4 cm right adnexal cyst. Personal review of the images finds no immediately concerning evidence of pathology within the uterus or ovary.
--- NOTE | 2025-04-04 | DI.CT_ITS ---
Exam(s) CT ABDOMEN PELVIS WO EXAM: CT ABDOMEN PELVIS WO CLINICAL HISTORY: Pelvic fluid collection with increasing pain. TECHNIQUE: Imaging Protocol: Axial computed tomography images with coronal and sagittal reformatted images were created and reviewed CONTRAST MATERIAL: Intravenous: none Oral: None COMPARISON: CT CT ABDOMEN PELVIS W from 04/02/2025 FINDINGS: VISUALIZED LUNG BASES: There are mild increased markings in the anterior right lung base-medial segment right middle lobe. No pleural effusions.. ABDOMEN: There is ascites again noted in the right paracolic gutter, subjacent to the liver, as well as in the pelvis, slightly increased from the previous CT scan of 2 days ago. LIVER: There are no obvious focal hepatic lesions evident of this noninfused study. GALLBLADDER/BILIARY: Gallbladder is again noted be surgically absent. CBD diameter upper normal. PANCREAS: No evidence of pancreatic mass nor dilatation of the pancreatic duct. SPLEEN: Spleen size is upper normal. No obvious splenic lesions. No perisplenic fluid. ADRENALS: There are no significant adrenal masses. KIDNEYS:No cysts evident. No solid renal masses. No calculi nor hydronephrosis. . ABDOMINAL AORTA: Abdominal aorta is not enlarged. LYMPH NODES: There is no retroperitoneal nor paraaortic adenopathy. ABDOMINAL WALL: No evidence of significant anterior abdominal wall nor inguinal hernia. GI: Again noted is an inflammatory process associated with the sigmoid in the left iliac fossa, similar to previous. Again appears phlegmonous and without improvement when compared to 2 days ago. There is free fluid both anterior and posterior to the uterus again noted, similar to previous PELVIS: LYMPH NODES: There is no intrapelvic nor inguinal adenopathy. GI: The appendix is not able to be identified as a separate structure.Scratch URINARY BLADDER: No calculi nor obvious masses evident REPRODUCTIVE: There is an IUD in the endometrial canal in satisfactory position again noted. There is a cyst in the right ovary measuring approximately 3 by 2.5 cm. There is no obvious extra ovarian adnexal mass. However, there is fluid in the cul-de-sac and adnexal regions, this similar but slightly increased when compared to the previous study. OSSEOUS: No fractures nor osseous lesions. IMPRESSION: 1. Findings are similar to the CT scan of 04/02/2025 with no improvement in the findings in the region of the sigmoid nor in the amount of fluid in the abdomen and pelvis. Indeed the amount of ascites in the abdomen and pelvis has slightly further increased when compared to 2 days ago. 2. IUD is in satisfactory position in the uterus. There is cyst in the right ovary which measures approximately 3 x 2.5 cm. 3. Recommend consideration for laparoscopy. RADIATION DOSE DELIVERED: 456.12mGy.cm Total DLP DATA REPOSITORY: All CT scans at this facility are submitted to the National Radiology Data Registry (NRDR) Dose Index Registry (DIR) with the [employer] (ACR). RADIATION OPTIMIZATION: All CT scans at this facility use at least one of these dose optimization techniques: automated exposure control; mA and/or kV adjustment per patient size (includes targeted exams where dose is matched to clinical indication); or iterative reconstruction.
[2025-04-04] MEDS: ACETAMINOPHEN 1,000 MG/100 ML BAG 400 MG IVPB ×3 (01:10→20:46)
[2025-04-04] MEDS: Normal Saline Flush 10 ML SYR IVP ×5 (01:13→20:48)
[2025-04-04] MEDS: Lactated Ringers 1,000 ML 150 ML IV ×2 (01:14→09:15)
--- NOTE | 2025-04-04 01:37 | NUR.NOTE ---
Nursing Note: Pt requested to have dilaudid removed from her meds. as she does not like the way it made her feel.
[2025-04-04 07:10] VITALS: BP 105/57; PULSE 68; RESP 16; TEMP 36.3; O2SAT 99
[2025-04-04 07:17] LABS: Abs Immature Grans 0.03 10^3/uL (0.0-0.06); HCT 32.1 % (36.0-46.0); HGB 10.8 g/dL (11.2-15.7); Immature Grans % 0.3 %; MCH 28.9 pg (27.0-33.0); MCHC 33.6 % (32.0-36.0); MCV 86 fL (80-95); MPV 10.5 fL (8.0-11.0); Platelet Count 170 10^3/uL (130-400); RBC 3.74 10^6/uL (3.93-5.22); RDW 13.2 % (11.7-14.6); RDW-SD 41.2 fL; WBC 9.76 10^3/uL (4.4-10.8)
[2025-04-04 07:32] LABS: Magnesium 1.8 mg/dL (1.8-2.4)
[2025-04-04 07:35] LABS: C-Reactive Protein 20.56 mg/dL (<or=0.5)
[2025-04-04 07:37] LABS: ALT 26 U/L (14-59); AST 19 U/L (15-37); Albumin 2.3 g/dL (3.4-5.0); Alkaline Phosphatase 75 U/L (46-116); Anion Gap 10.9 mmol/L (3-11); BUN 4 mg/dL (7-18); Bilirubin, Total 1.1 mg/dL (0.2-1.0); CO2 24.1 mmol/L (21.0-32.0); Calcium 8.4 mg/dL (8.5-10.1); Chloride 103 mmol/L (98-107); Estimated GFR 117.02 (mL/min/1.73m2); Glucose 67 mg/dL (74-106); Potassium 3.6 mmol/L (3.5-5.1); Sodium 138 mmol/L (136-145); Total Protein 5.8 g/dL (6.4-8.2)
[2025-04-04] MEDS: PIPERACILLIN/TAZO 4.5 GM in Normal Saline 100 ML IVPB ×4 (08:26→20:44)
[2025-04-04] MEDS: Pantoprazole 40 MG VIAL IVP (08:27)
--- NOTE | 2025-04-04 08:57 | W.PM.PROGNOT ---
Date of Service Date of service: 04/04/25 Time of Service: 08:57 Assessment and Plan Assessment and plan (1) Diverticulitis of intestine with abscess: Status: Acute Assessment and plan: Not meeting sepsis criteria on admission with WBC at 11.53 , with tachypnea RR 26 and intra-abdominal infectious source Blood cultures are negative at 24 hours Ongoing Zosyn. WBC now 11.13 from 15 Ongoing surgical consult with Dr. 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 CT w oral contrast: Right pulmonary cyst measuring 3 x 2.5 cm with increased adnexal regions and increased ascites in the abdomen and pelvis labs in AM (2) Pelvic fluid collection: Status: Acute Assessment and plan: As per surgery this might be pelvic enteritis NURSE INFECTION CONTROL consult most likely concerned for GI etiology of right adnexal involvement And as above (3) Hypotension: Status: Acute Assessment and plan: Resolving today SBP reported 84 by RN s/p pain RX on 04/03 - stable s/p IVF bolus (4) Abdominal pain: Status: Acute Assessment and plan: Ongoing PRN acetaminophen and hydromorphone low dose - morphine was not effective (5) Nausea: Status: Acute Assessment and plan: Ongoing PRN Zofran. and compazine Continue IV PPI (6) Hypokalemia: Status: Acute Assessment and plan: Resolved BMP in AM (7) Tobacco abuse: Status: Acute Assessment and plan: Ongoing PRN NRT (8) Anemia: Status: Chronic Assessment and plan: H&H 13 & 38 on 04/03 now 10.8 & 32 - might be dilutional to some extent repeat hemoglobin at 12.8 Stool for occult blood pending Reporting vaginal bleeding Iron study showing low iron level would benefit from IV iron CBC in AM (9) On deep vein thrombosis (DVT) prophylaxis: Status: Acute Assessment and plan: SCD's MATIAS's No pharmacological prophylaxis -OR in a.m. Discussed with Dr. Gage Subjective Subjective Patient reports: still having pain, tolerating liquids well, voiding w/o difficulty, no flatus, nausea and other (Reporting vaginal bleeding); denies tolerating a regular diet, blood in stool, vomiting, shortness of breath or fever Exam Narrative Exam Narrative: Alert & oriented X3 , decreased abdominal pain/ cramping, no focal neurological deficits, clear lungs, S1 - S2 , no murmur, abdomen is non-distended , soft with diffused tenderness ongoing to RLQ, positive bilateral CVA tenderness, no blood seen on external genital examination of the vulva Objective Last Vital Signs Temp 36.3 C L 04/04/25 07:10 Pulse 68 04/04/25 07:10 Resp 16 04/04/25 07:10 BP 105/57 L 04/04/25 07:10 Pulse Ox 99 04/04/25 07:10 Laboratory Results - last 24 hr 04/03/25 04/03/25 04/04/25 07:15 14:30 06:42 WBC 9.76 RBC 3.74 L Hgb 10.8 L D Hct 32.1 L MCV 86 MCH 28.9 MCHC 33.6 RDW 13.2 Plt Count 170 MPV 10.5 Immature Gran % 0.3 Neutrophils % 78.3 Lymphocytes % 14.3 Monocytes % 5.6 Eosinophils % 1.2 Basophils % 0.3 Nucleated RBC % 0.0 Absolute Neutrophils 7.63 H Absolute Lymphocytes 1.40 Absolute Monocytes 0.55 Absolute Eosinophils 0.12 Absolute Basophils 0.03 VBG Lactate 0.7 Sodium 138 Potassium 3.6 Chloride 103 Carbon Dioxide 24.1 Anion Gap 10.9 BUN 4 L Creatinine 0.6 Est GFR (CKD-EPI 2020) 117.02 Glucose 67 L Calcium 8.4 L Magnesium 1.8 Total Bilirubin 1.1 H AST 19 ALT 26 Alkaline Phosphatase 75 C-Reactive Protein 15.37 H 20.56 H Total Protein 5.8 L Albumin 2.3 L PAWSS Have you Been Recently Intoxicated or Drunk Within the Last 30 days?: No Have you Ever Experienced Previous Episodes of Alcohol Withdrawal?: No Have you ever Experienced Withdrawal Seizures?: No Have you ever Experienced Delirium Tremens(DT)s?: No Have you ever undergone Alcohol Rehabilitation Treatment (i.e, inpt ot outpatient treatment programs)?: No Have you ever Experienced Blackouts?: No Have you ever Combined Alcohol with other Downers within the last 90 days?: No Have you ever Combined Alcohol with any other Substance of Abuse during the last 90 days?: No Positive Blood Alcohol level on Presentation? [PCS.BAL]: No Evidence of Increased Autonomic Activity (i.e. HR>120, tremor, sweating, agitation, nausea)?: No Result: 0 Time Spent with Patient Time Spent with Patient: >50 minutes Time was spent: preparing to see the patient(eg.review tests), obtaining and/or reviewing separately otained hiistory, ordering medications,tests, procedures, referring, communicating with other health geriatric personal care aide, indepentently interpreting results, counseling the patient and care coordination
[2025-04-04 09:52] LABS: Iron 17 ug/dL (50-170); Total Iron Binding Capacity 145 ug/dL (250-450); Transferrin Sat 12 % (15-50)
[2025-04-04 10:05] LABS: Ferritin 127 ng/mL (8-252)
--- NOTE | 2025-04-04 10:27 | PDOC.CMPRO ---
Date of service: 04/04/25 Time of Service: 10:28 Care Management Progress Note Progress Note Text Progress Note Text: Kanika was awake and lying in bed when CM met with her. She received an orange Georgian ice on her lunch tray, CM notified dietary of her orange allergy. Kanika requires additional medical work up and imaging. CM will continue to follow. Discharge Potential Discharge Needs: PCP F/U Appt (Hospital follow up) Anticipated Barriers to Discharge: None Identified Patient/Family Education Needs: Review discharge instructions, discuss Ask Me Three Transportation: Private vehicle Plan: Kanika is being closely monitored and treated for diverticulitis. Discharge is anticipated home via private vehicle with her friend Rubén, once medically cleared. A surgical consult is pending. No new services are anticipated at this time. A referral to [facility] has been made. and it is recommended that the patient establish care with a PCP locally, if she is planning to relocate. CM will continue to follow. Social Determinants of Health Screening Will the Patient Participate in the Screening?: Declined to provide
[2025-04-04] MEDS: Omnipaque 350 MG/ML 50 ML BTL PO (11:03)
[2025-04-04 15:00] VITALS: BP 104/57; PULSE 72; RESP 16; TEMP 36.7; O2SAT 99
--- NOTE | 2025-04-04 15:50 | W.PM.PROGNOT ---
Date of Service Date of service: 04/04/25 Time of Service: 15:50 Assessment and Plan Assessment and plan (1) Abdominal fluid collection: Status: Acute Assessment and plan: Plan yesterday as well as this morning was to obtain CT with oral contrast, patient has been unable to do this secondary to nausea with contrast. Her exam this afternoon is worsened from yesterday and this morning. Will repeat CT scan now, without contrast, to assess for enlargement of fluid collection. (See below). (2) Abdominal pain: Status: Acute Assessment and plan: Plan for diagnostic laparoscopy tomorrow morning. This afternoon discussed with patient the risks and expected outcomes of the procedure. I suspect that this is blood, which is causing peritoneal irritation. (3) Anemia: Status: Chronic Assessment and plan: Patient with anemia, as described above on admission she had a hemoglobin of 15, yesterday 13, and today 10.8. Some of this is delusional, she did get 3 L of IV fluids yesterday. Also she may have entered the hospital relatively dry. In either situation, suspect blood in the pelvis. Clinical question is if bleeding is temporized or if case should be performed tonight. Will repeat patient's CT as above, have ordered stat CBC for now, and type and screen. If the studies indicate precipitous worsening, can plan for procedure tonight instead of tomorrow morning. Subjective Subjective Interval history since last seen: Patient is a still having abdominal pain, she rates it about the same as yesterday. She tried to drink her contrast yesterday but it made her nauseated. Interestingly she was able to drink water and apple juice without difficulty. She was seen this morning around 9 AM, and is well today at around 3:30 PM. She reports that she has ambulated. She has not passed bowel movement. She is urinating without difficulty. Exam Narrative Exam Narrative: Patient is an adult female, she is lying supine on the hospital bed, she does appear in discomfort. Her is present bedside. Patient's abdomen is nondistended, it is tender in the suprapubic region and lower quadrants, with more severity than yesterday. There is voluntary guarding with palpation of the abdomen. Objective Last Vital Signs Temp 36.3 C L 04/04/25 07:10 Pulse 68 04/04/25 07:10 Resp 16 04/04/25 07:10 BP 105/57 L 04/04/25 07:10 Pulse Ox 99 04/04/25 07:10 Laboratory Results - last 24 hr 04/04/25 06:42 WBC 9.76 RBC 3.74 L Hgb 10.8 L D Hct 32.1 L MCV 86 MCH 28.9 MCHC 33.6 RDW 13.2 Plt Count 170 MPV 10.5 Immature Gran % 0.3 Neutrophils % 78.3 Lymphocytes % 14.3 Monocytes % 5.6 Eosinophils % 1.2 Basophils % 0.3 Nucleated RBC % 0.0 Absolute Neutrophils 7.63 H Absolute Lymphocytes 1.40 Absolute Monocytes 0.55 Absolute Eosinophils 0.12 Absolute Basophils 0.03 Sodium 138 Potassium 3.6 Chloride 103 Carbon Dioxide 24.1 Anion Gap 10.9 BUN 4 L Creatinine 0.6 Est GFR (CKD-EPI 2020) 117.02 Glucose 67 L Calcium 8.4 L Magnesium 1.8 Iron 17 L TIBC 145 L Transferrin % Sat 12 L Ferritin 127 Total Bilirubin 1.1 H AST 19 ALT 26 Alkaline Phosphatase 75 C-Reactive Protein 20.56 H Total Protein 5.8 L Albumin 2.3 L Objective Narrative Objective Narrative: Reviewed patient's laboratory values today, her white blood cell count has normalized, her hemoglobin has dropped currently is 10.8, yesterday 13.2. She was 15 on admission. PAWSS Have you Been Recently Intoxicated or Drunk Within the Last 30 days?: No Have you Ever Experienced Previous Episodes of Alcohol Withdrawal?: No Have you ever Experienced Withdrawal Seizures?: No Have you ever Experienced Delirium Tremens(DT)s?: No Have you ever undergone Alcohol Rehabilitation Treatment (i.e, inpt ot outpatient treatment programs)?: No Have you ever Experienced Blackouts?: No Have you ever Combined Alcohol with other Downers within the last 90 days?: No Have you ever Combined Alcohol with any other Substance of Abuse during the last 90 days?: No Positive Blood Alcohol level on Presentation? [PCS.BAL]: No Evidence of Increased Autonomic Activity (i.e. HR>120, tremor, sweating, agitation, nausea)?: No Result: 0 Time Spent with Patient Time Spent with Patient: 35-49 minutes Time was spent: preparing to see the patient(eg.review tests), ordering medications,tests, procedures and counseling the patient
[2025-04-04 16:48] LABS: HCT 38.6 % (36.0-46.0); HGB 12.8 g/dL (11.2-15.7); MCH 28.7 pg (27.0-33.0); MCHC 33.2 % (32.0-36.0); MCV 87 fL (80-95); MPV 10.4 fL (8.0-11.0); Platelet Count 227 10^3/uL (130-400); RBC 4.46 10^6/uL (3.93-5.22); RDW 13.2 % (11.7-14.6); RDW-SD 41.2 fL; WBC 11.13 10^3/uL (4.4-10.8)
[2025-04-04] MEDS: Ondansetron 4 MG/2 ML VIAL IVP (20:48)
[2025-04-04 21:01] VITALS: BP 107/69; PULSE 70; RESP 20; TEMP 37; O2SAT 100
[2025-04-05] VITALS (22 sets, daily range): BP systolic 92–155; BP diastolic 47–110; PULSE 53–77; RESP 13–27; TEMP 36.3–37.6; O2SAT 92–100; BMI 23.6
[2025-04-05] MEDS: Lactated Ringers 1,000 ML 75 ML IV ×2 (04:26→18:09)
--- NOTE | 2025-04-05 06:58 | ANES.PREOP_ITS ---
General Info Date of Service Date Performed: 04/05/25 Height: 5 ft 5 in Weight: 64.5 kg Body Mass Index (BMI): 23.6 Surgical Procedure: Operation Date: 04/05/25 07:40 Proposed Procedure Side Surgeon p Diagnostic Laparoscopy Cricket Leiva MD Meds Allergies and Home Medications Allergies Allergy/AdvReac Type Severity Reaction Status Date / Time ciprofloxacin (From Cipro) Allergy Intermediate SWELLING/FACE Verified 04/03/25 00:23 ,RASH ORANGES Allergy Intermediate SWELLING,RA Uncoded 04/03/25 00:23 Home Medication ?Medication ?Instructions ?Recorded levonorgestrel (Mirena) 1 unit VG DAILY 02/05/17 permethrin 5 % topical cream 60 gm topical DIRECTED #1 tube 05/22/17 Current Visit Medications: Current Medications Generic Name Dose Route Start Last Admin Trade Name Freq PRN Reason Stop Dose Admin Al Hydrox/Mg Hydrox/Simethicone 30 ml 04/03/25 00:01 Mylanta Suspension 30 Ml Cup PO Q2H PRN PRN Docusate Sodium 100 mg 04/03/25 00:01 Docusate Sodium 100 Mg Cap PO TID PRN PRN Hydromorphone HCl 1 mg 04/03/25 15:48 Hydromorphone 2 Mg/Ml Syr IVP Q4H PRN PRN Ringer's Solution 1,000 mls @ 75 mls/hr 04/03/25 10:30 04/05/25 04:26 IV 75 mls/hr INFUSION NADIR Administration Acetaminophen 1,000 mg in 100 mls @ 400 mls/hr 04/03/25 11:44 04/04/25 21:15 Ofirmev IVPB Infused Q6H PRN PRN Infusion Piperacillin Sod/Tazobactam 100 mls @ 200 mls/hr 04/03/25 17:00 04/04/25 22:56 Sod 4.5 gm/ Sodium Chloride IVPB Infused QID NADIR Infusion Magnesium Hydroxide 30 ml 04/03/25 00:01 Milk Of Magnesia 30 Ml Cup PO DAILY PRN PRN Miscellaneous Medication 473 ml 04/03/25 18:00 Breeza Beverage 473 Ml Btl PO 05/03/25 23:59 DIRECTED NADIR Nicotine 14 mg 04/03/25 00:01 Nicotine 14 Mg/24 Hr Patch TD DAILY PRN PRN Nicotine 14 mg 04/03/25 13:56 Nicotine 14 Mg/24 Hr Patch TD DAILY PRN PRN Ondansetron HCl 4 mg 04/03/25 00:10 04/04/25 20:48 Ondansetron 4 Mg/2 Ml Vial IVP 4 mg QID PRN Administration Nausea / Vomiting Pantoprazole Sodium 40 mg 04/03/25 14:00 04/04/25 08:27 Pantoprazole 40 Mg Vial IVP 40 mg DAILY NADIR Administration Polyethylene Glycol 17 gm 04/03/25 00:01 Polyethylene Glycol 3350 17 Gm Packet PO DAILY PRN PRN Constipation Prochlorperazine Edisylate 10 mg 04/03/25 14:07 Prochlorperazine 10 Mg/2 Ml Vial IVP Q3H PRN PRN Sodium Chloride 0 ml 04/03/25 03:46 04/04/25 20:48 Normal Saline Flush 10 Ml Syr IVP 10 ml PRN PRN Administration PFSH Active Problems Active Problems: Problem Status Onset Code Pelvic fluid collection Acute R18.8 Anemia Chronic D64.9 Pelvic pain Acute R10.2 Nausea & vomiting Acute R11.2 Abdominal fluid collection Acute R18.8 Abdominal pain Acute R10.9 Hypotension Acute I95.9 On deep vein thrombosis (DVT) prophylaxis Acute Z79.899 Sepsis Acute A41.9 Tobacco abuse Acute Z72.0 Hypokalemia Acute E87.6 Nausea Acute R11.0 Diverticulitis of intestine with abscess Acute K57.80 RLQ abdominal pain Acute R10.31 Vaginal delivery Acute 05/30/13 O80 Surgical History Surgical History Appendectomy (02/06/17) Tobacco Smoking/Tobacco Use Status: Former Tobacco Use Substance Use Substance use: Never Prental History History 2 Para 2 Hx # Term Pregnancies Multiple births Hx # Pregnancies Ectopic pregnancies AB induced Hx Number of Living Children AB spontaneous Vital Signs and Lab Results Vital Signs Most Recent Vital Signs in EMR: Most Recent Vital Signs Temp Pulse Resp BP Pulse Ox 36.8 C 63 16 103/66 99 04/05/25 02:59 04/05/25 02:59 04/05/25 02:59 04/05/25 02:59 04/05/25 02:59 Lab Results 04/05/25 06:20 04/05/25 06:20 Blood Type / Crossmatch: 2 Antibody Screen NEGATIVE 04/04/25 Complete Blood Count: 2 WBC, (4.4-10.8) 10.48 10^3/uL Today, 06:20 RBC, (3.93-5.22) 3.97 10^6/uL Today, 06:20 Hgb, (11.2-15.7) 11.7 g/dL Today, 06:20 Hct, (36.0-46.0) 34.2 % L Today, 06:20 Plt Count, (130-400) 206 10^3/uL Today, 06:20 VBG Lactate, (<or=2.0) 0.7 mmol/L 04/03/25, 14:30 Complete Metabolic Panel: 2 Sodium, (136-145) 138 mmol/L Today, 06:20 Potassium, (3.5-5.1) 3.4 mmol/L L Today, 06:20 Chloride, (98-107) 102 mmol/L Today, 06:20 Carbon Dioxide, (21.0-32.0) 25.7 mmol/L Today, 06:20 BUN, (7-18) 4 mg/dL L Today, 06:20 Creatinine, (0.55-1.02) 0.7 mg/dL Today, 06:20 Est GFR (CKD-EPI 2020), (mL/min/1.73m2) 112.75 Today, 06:20 Magnesium, (1.8-2.4) 1.8 mg/dL 04/04/25, 06:42 Calcium, (8.5-10.1) 8.5 mg/dL Today, 06:20 Albumin, (3.4-5.0) 2.5 g/dL L Today, 06:20 Glucose, (74-106) 72 mg/dL L Today, 06:20 C-Reactive Protein, (<or=0.5) 17.12 mg/dL H Today, 06: 20 Liver Function Panel: 2 ALT, (14-59) 20 U/L Today, 06:20 AST, (15-37) 13 U/L L Today, 06:20 Pancreas Panel: 2 Lipase, (<78) 16 U/L 04/02/25, 20:18 Panel: 2 Serum HCG, Qual Negative 04/02/25, 20:18 Anesthesia Assessment and Plan Anesthesia History Personal History: No History of Anesthesia Complications Family History: No Family History of Anesthesia Complications Exercise Tolerance Exercise Tolerance: Metabolic Equivalents>4 Pertinent Negatives Pertinent Negatives: No Major Cardiovascular Symptoms or Complaints, No Major Pulmonary Symptoms or Complaints and No History of CVA/TIA Cardiac & Pulmonary Exam Cardiac Exam: Normal S1/S2 Heart Sounds Pulmonary Exam: Clear Bilateral Breath Sounds Implantable Cardiac Device Does patient have a Pacemaker or an ICD?: No Airway Exam Known Difficult Airway: No Mallampati Class: 2 Mouth Opening: Normal (> 3cm) Thyromental Distance: Greater than 3 cm Neck Range of Motion: Full ROM Neck Circumference: Normal Teeth Condition: Generalized Poor Dentition, Loose or Chipped, Dental Caries and Advised tooth loss possible given current condition (indicate tooth) Tooth Numberin 1. Chipped incisor, discussed potential addition damage due to location and quality of damage. ASA Classification ASA Score: ASA 2 Emergency Case?: Yes NPO Status NPO Status: NPO Clears >2 hours, Solids >8 hours Status Status: Negative HCG Anesthesia Plan Resuscitation Status: Full Code Anesthesia Technique: General Anesthesia Airway Planned: Endotracheal Tube Pain Management: Surgeon and patient request nerve block (Bilateral TAP blocks if we convert to open) Monitors Used: Standard Monitors
[2025-04-05 07:03] LABS: Abs Immature Grans 0.03 10^3/uL (0.0-0.06); HCT 34.2 % (36.0-46.0); HGB 11.7 g/dL (11.2-15.7); Immature Grans % 0.3 %; MCH 29.5 pg (27.0-33.0); MCHC 34.2 % (32.0-36.0); MCV 86 fL (80-95); MPV 10.3 fL (8.0-11.0); Platelet Count 206 10^3/uL (130-400); RBC 3.97 10^6/uL (3.93-5.22); RDW 13.0 % (11.7-14.6); RDW-SD 40.8 fL; WBC 10.48 10^3/uL (4.4-10.8)
[2025-04-05 07:40] LABS: C-Reactive Protein 17.12 mg/dL (<or=0.5)
[2025-04-05 07:42] LABS: ALT 20 U/L (14-59); AST 13 U/L (15-37); Albumin 2.5 g/dL (3.4-5.0); Alkaline Phosphatase 85 U/L (46-116); Anion Gap 10.3 mmol/L (3-11); BUN 4 mg/dL (7-18); Bilirubin, Total 0.7 mg/dL (0.2-1.0); CO2 25.7 mmol/L (21.0-32.0); Calcium 8.5 mg/dL (8.5-10.1); Chloride 102 mmol/L (98-107); Estimated GFR 112.75 (mL/min/1.73m2); Glucose 72 mg/dL (74-106); Potassium 3.4 mmol/L (3.5-5.1); Sodium 138 mmol/L (136-145); Total Protein 6.6 g/dL (6.4-8.2)
[2025-04-05] MEDS: Lactated Ringers 1,000 ML 30 ML IV (08:34)
[2025-04-05] MEDS: ceFAZolin 2 GM/50 ML BAG 100 GM (08:55)
[2025-04-05] MEDS: Bupivacaine 0.25% Pres-Free 30 ML VIAL (09:15)
[2025-04-05 09:25] LABS: Transferrin 116 mg/dL (201-352)
--- NOTE | 2025-04-05 10:31 | BRIEFOP_ITS ---
Date of service: 04/05/25 Time of Service: 10:31 Brief Operative Note Procedure/Pre & Post Op Diagnoses/[employer] Supervisor: Operation Date: 04/05/25 07:40 Actual Procedures p Diagnostic Laparoscopy w/Partial Oophrectomy(Left) - Cricket Leiva MD Pre-Op Diagnosis: ABDOMINAL PAIN + ABDOMINAL FLUID COLLECTION Post-Op Diagnosis: OVARIAN MASS Case Staff Physician [employer] Supervisor: Anirudh Oden Estimated Blood Loss Output, Estimated Blood Loss 20 Amount Specimen/Culture Specimen(s): 1. REMNANTS OF LEFT OVARY Complications Complications: None Additional Procedure Notes Note: See full dictation to follow
[2025-04-05] MEDS: fentaNYL 100 MCG/2 ML VIAL IVP ×2 (10:51→11:12)
--- NOTE | 2025-04-05 10:52 | PDOC.CMPRO ---
Date of service: 04/05/25 Time of Service: 10:55 Care Management Progress Note Progress Note Text Progress Note Text: Kanika is in the OR at the time CM attempted to visit with her. Per report, she is undergoing an exploratory laparoscopy. She is on antibiotics. CM will continue to follow. Discharge Potential Discharge Needs: PCP F/U Appt and Surgical F/U Appt Anticipated Barriers to Discharge: Medical Status Patient/Family Education Needs: Review discharge instructions, discuss Ask Me Three Transportation: Private vehicle Plan: Kanika is being closely monitored and treated for diverticulitis. Discharge is anticipated home via private vehicle with her friend Rubén, once medically cleared. A surgical consult is pending. No new services are anticipated at this time. A referral to [facility] has been made and it is recommended that the patient establish care with a PCP locally, if she is planning to relocate. CM will continue to follow. Social Determinants of Health Screening Will the Patient Participate in the Screening?: Declined to provide
--- NOTE | 2025-04-05 12:00 | W.ANESPOSTOP ---
Postoperative Evaluation Date, Time and Location Date Performed: 04/05/25 Time Performed: 12:00 Patient Location: Day Surgery Unit Vital Signs Most Recent Imported Vital Signs: Most Recent Vital Signs Temp Pulse Resp BP Pulse Ox 36.7 C 62 17 98/51 L 92 04/05/25 11:30 04/05/25 11:02 04/05/25 11:02 04/05/25 11:01 04/05/25 11:02 Pain Score Most Recent Pain Score: Most Recent Pain Score Pain Level [Anterior Abdomen] 0 04/03/25 13:06 Pain Level 5 04/05/25 11:30 Assessment Mental Status: Awake (Alert & Oriented to Patient Baseline) Airway and Respiratory Function: Patent airway with normal (patient baseline) respiratory exam Cardiovascular Function: Hemodynamically Stable Hydration Status: Adequately Hydrated Nausea & Vomiting: No Nausea or Vomiting Pain: Pain is tolerable per patient Peripheral Nerve Block: Patient did not receive a nerve block
[2025-04-05] MEDS: HYDROmorphone 2 MG/ML SYR 1 MG IVP (12:02)
[2025-04-05] MEDS: Normal Saline Flush 10 ML SYR IVP ×2 (12:03→16:10)
--- NOTE | 2025-04-05 12:09 | W.PM.OP ---
Operative Note Operative Note PRE-OP DIAGNOSIS: Abdominal pain with intra-abdominal free fluid POST-OP DIAGNOSIS: other (Infected left ovarian remnant, with localized peritonitis) PROCEDURE: Diagnostic laparoscopy, left partial oophorectomy SURGEON: Cricket Leiva ORGANIZATION DEVELOPMENT CONSULTANT: Anirudh Oden ANESTHESIA TYPE: General LMA/ETT Refer to Anesthesia Record ESTIMATED BLOOD LOSS: 20 PATHOLOGY: other (Left ovarian remnant with attached omentum (permanent pathology)) Implants: None Indications: Ms. Diego is a 39-year-old female, she presented to the hospital with abdominal pain, and abdominal free fluid. Her imaging showed some inflammation along the sigmoid, with possible large diverticulum anterior to the sigmoid. 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 She also had history of ruptured ovarian cyst on the right side in 2018, and underwent incidental appendectomy at time of laparoscopic examination for this. Her pain did not improve conservatively, and she was planned for laparoscopic examination. Findings: 1. Infected left ovarian remnant (versus fallopian tube), causing localized left lower quadrant peritonitis 2. Reactive ascites Procedure Description: Patient was taken the operating room. She underwent general anesthesia. The abdomen was prepped and draped. A timeout was completed. A Veress needle entry was performed in the left upper quadrant at Leonard's point, a 5 mm trocar was inserted after the abdomen was insufflated to 14 cc of water. An additional 5 mm port was placed in the periumbilical position. Two 5 mm ports were placed in the right mid abdomen, lateral to the rectus sheath. The abdomen was surveyed, there was ascitic peritoneal fluid which was present at Morison's pouch, this was suctioned. The patient was placed in a steep Trendelenburg position. In the pelvis there was similar type translucent ascitic peritoneal fluid which was suctioned. The pelvis was inspected, there were some expected adhesions, and some chronic appearing straw-colored gelatinous fluid in the pouch of William. The uterus was normal in size and appearance. It was not inflamed. The right ovary, tube and fimbria appeared normal. There was a small cyst on the surface of the right ovary about a centimeter in diameter. There were omental adhesions in the left lower quadrant, which involved the sigmoid and small intestine as well as the left pelvic sidewall. Dr. Nayana Oates (obstetrics gynecology), was requested for her intraoperative opinion on the pelvic anatomy. The adhesions in the left lower quadrant were dissected. The time for dissection of the adhesions was about 35 minutes. The small intestine at this site and sigmoid colon were inflamed, but without perforation nor necrosis. There were no visible colonic diverticula. Anterior to the sigmoid a tongue of omentum was adhered to an inflamed structure measuring about 2-1/2 x 1 x 1 cm. This was tethered to the uterus, and the left external iliac vein. The inflamed mass appeared as either remnants left fimbria and fallopian tube, or more likely remnant left ovarian tissue from prior desmoid tumor. The superior omental tongue was pedicled, and then taken with the LigaSure device. The inferior uterine and venous attachment was also pedicled, and then transected with the LigaSure device. The left external iliac vein was protected during the course of dissection. The site of dissection was inspected, it was hemostatic. A generous tongue of omentum was laid over the sigmoid colon, the inflamed small intestine, and the site of dissection on the left pelvic sidewall. Patient was returned to the neutral position the periumbilical port was enlarged to 10 mm, and an endoscopic retrieval pouch was placed in the abdomen. The specimen is placed in the bag and removed from the abdomen. The specimen was sent for permanent pathology, left ovarian remnant. The 10 mm port site near the umbilicus was closed with interrupted #1 Vicryl suture placed using a suture passer. Gas was allowed to desufflate from the abdomen, all incision sites were closed with 3-0 Monocryl. Sterile dressings were applied. Sponge and needle counts were correct at the termination of the procedure. Patient tolerated procedure well, she was transitioned to the recovery unit, she remains in stable condition. Date of Procedure: 04/05/25
--- NOTE | 2025-04-05 13:07 | PHA.REVIEW2 ---
Pharmacy Admission Review Admission Clinical Review Admission Pharmacy Review: Pelvic fluid collection (Acute) Pelvic pain (Acute) Nausea & vomiting (Acute) Abdominal fluid collection (Acute) Abdominal pain (Acute) Hypotension (Acute) On deep vein thrombosis (DVT) prophylaxis (Acute) Tobacco abuse (Acute) Hypokalemia (Acute) Nausea (Acute) Diverticulitis of intestine with abscess (Acute) ciprofloxacin (From Cipro) Allergy (Intermediate, Verified 04/03/25 00:23) SWELLING/FACE ,RASH ORANGES Allergy (Intermediate, Uncoded 04/03/25 00:23) SWELLING,RASH Resuscitation Status Full Code Height 5 ft 5 in Weight 64.5 kg Comments Comments/Follow Ups: POD#0 Diagnostic laparoscopy, left partial oophorectomy Pharmacy Admission Review Renal Dosing Renal Dosing: BUN 4 mg/dL (7-18) L 04/05/25 06:20 Creatinine 0.7 mg/dL (0.55-1.02) 04/05/25 06:20 Medications needing adjustments: Reviewed (CrCl 109.65 mL/min) List of meds needing interventions: Current medications are okay Anticoagulation Anticoagulation: Hgb 11.7 g/dL (11.2-15.7) 04/05/25 06:20 Hct 34.2 % (36.0-46.0) L 04/05/25 06:20 Plt Count 206 10^3/uL (130-400) 04/05/25 06:20 Creatinine 0.7 mg/dL (0.55-1.02) 04/05/25 06:20 DVT Prophylaxis: Reviewed (SCDs/TEDs - OR today) Opiate Usage Evaluate Pain Scale/Pains Meds: Reviewed (hydromorphone 1mg IVP q4h PRN - 1mg/24hrs) Scheduled Bowel Reg ordered if on Opiates?: No (PRN docusate/Miralax) Relevant Labs Relevant Labs: Sodium 138 mmol/L (136-145) 04/05/25 06:20 Potassium 3.4 mmol/L (3.5-5.1) L 04/05/25 06:20 Chloride 102 mmol/L (98-107) 04/05/25 06:20 Magnesium 1.8 mg/dL (1.8-2.4) 04/04/25 06:42 C-Reactive Protein 17.12 mg/dL (<or=0.5) H 08/07/25 06:20 Electrolytes, C-Reactive P, ESR: Reviewed Cardiac Review BP, HR, EF%: Reviewed (HR and BP WNL) QTc Review QTc: Reviewed (No EKG on file) IV to PO Switch IV Medications: Reviewed (NPO) Home Meds Home Med List reviewed: Reviewed Relevent Home Meds Not ordered & why?: permethrin cream Current Meds Current Medication Order Review: Intervened Comments: Added IV admission order Pharmacy Antibiotic Review Relevant Labs: Relevant Labs 04/05/25 06:20 C-Reactive Protein 17.12 H WBC 10.48 10^3/uL (4.4-10.8) 04/05/25 06:20 Temperature 36.6 C Temperature 36.7 C Temperature 36.6 C Temperature 36.6 C Temperature 36.6 C Temperature 36.3 C Temperature 37.6 C Temperature 36.8 C Microbiology 04/05/25 06:15 Stool Occult Blood (TARYN) - Final Stool 04/03/25 14:20 Blood Culture - Preliminary Blood NO GROWTH 24 HOURS 04/03/25 14:30 Blood Culture - Preliminary Blood NO GROWTH 24 HOURS Pharmacy Antibiotic Activity: C/S review and Reviewed, no change Comments: Patient is on Zosyn, day 3, for diverticulitis. WBC decreased from 11.13. Comments Comments/Follow Ups: POD#0 Diagnostic laparoscopy, left partial oophorectomy
--- NOTE | 2025-04-05 13:38 | W.GYNCONSULT ---
Date of service: 04/05/25 Time of Service: 13:38 Assessment and Plan Assessment and plan (1) Pelvic pain: Status: Acute Assessment and plan: Patient was initially seen and evaluated for pelvic pain with abnormal imaging studies. She had a CT scan which revealed, from a gynecologic standpoint, IUD in satisfactory location, right ovarian cyst which appears benign measuring 3 x 2-1/2 cm, and fluid in the adnexal region, and phlegmonous changes near to the left iliac fossa and pelvic sidewall. She was taken the operating suite for diagnostic, possible operative laparoscopy. visualization of the right adnexal area appears normal and benign with a small ovarian cyst and normal caliber fallopian tube. Uterus appeared small, though slightly erythematous. There was a phlegmatic mass in the left pelvis with adherent underlying bowel. The remainder of the procedure was carried out by general surgery. There was tissue that was identified low in the pelvis which was removed and sent for pathologic examination. In light of these findings, my recommendation would be to treat her empirically as pelvic inflammatory disease with IV antibiotics converted to oral when afebrile, with appropriate white blood cell count. 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 (4) Pelvic inflammation in female: Status: Acute History of Present Illness History of Present Illness Chief Complaint: Intraoperative consult Narrative: Kindly asked to see in consultation, intraoperatively, this 39-year-old female. She had been taken to the operating suite by general surgery for evaluation of abdominal pain and abdominal fluid collection. I was asked to evaluate the patient's ovaries and pelvis in light of an inflammatory response particularly in the left adnexal area, and visualization of the right ovary. Consults Consult date: 04/05/25 Requesting physician: Cricket Leiva [facility] All Active Problems (Updated 04/05/25 @ 13:42 by Nayana Oates DO) Pelvic inflammation in female (Acute) History of left oophorectomy (Acute) Pelvic fluid collection (Acute) Anemia (Chronic) Pelvic pain (Acute) Nausea & vomiting (Acute) Abdominal fluid collection (Acute) Abdominal pain (Acute) Hypotension (Acute) On deep vein thrombosis (DVT) prophylaxis (Acute) Sepsis (Acute) Tobacco abuse (Acute) Hypokalemia (Acute) Nausea (Acute) Diverticulitis of intestine with abscess (Acute) RLQ abdominal pain (Acute) Vaginal delivery (Acute 05/30/13) Surgical History Appendectomy (02/06/17) Social History Smoking/Tobacco Use Status: Former Tobacco Use Smoking risk assessment performed?: Yes Drug use: Never Housing: house Do you feel safe in your relationship?: Yes History History Para 2 Hx # Term Pregnancies Multiple births Hx # Pregnancies Ectopic pregnancies AB induced Hx Number of Living Children AB spontaneous Exam Narrative Exam Narrative: Intraoperative consultation performed. Patient was in the process of having a surgical exploration, laparoscopically. A general surgery was requested. I did evaluate her pelvis. Her uterus appeared small, involuted, slightly erythematous. Right fallopian tube after elevation appeared normal. Right ovary appeared normal with a very small benign-appearing cyst. The left adnexa was more complex with an amount of inflammatory exudate. Bowel appeared to be adherent into the left pelvic sidewall and adnexal area. At that time, during the time of visualization, there was no discrete ovarian tissue identified. Patient has a history of a left oophorectomy for dermoid cyst in 2010. This did not appear to be primary ovarian pathology, and more related to an inflammatory process related to the bowel. After this visualization, I departed the OR suite. I was called later to be notified that there was an area of tissue that may have been an ovarian remnant which was removed by general surgery and sent for pathologic examination. He did not feel that there was an issue with the bowel or bowel integrity, that this did not appear to be a diverticular issue. In light of this, if the inflammatory process was not initially incited by her colon, other possibility could have been a ascending if infection. Results Last Vital Signs Temp 97.9 F 04/05/25 12:57 Pulse 67 04/05/25 12:57 Resp 15 04/05/25 12:57 BP 108/70 04/05/25 12:57 Pulse Ox 94 04/05/25 12:57 Labs 04/05/25 06:20 04/05/25 06:20 Labs: Laboratory Results - last 24 hr 04/04/25 04/05/25 16:23 06:20 WBC 11.13 H 10.48 RBC 4.46 3.97 Hgb 12.8 D 11.7 Hct 38.6 34.2 L MCV 87 86 MCH 28.7 29.5 MCHC 33.2 34.2 RDW 13.2 13.0 Plt Count 227 206 MPV 10.4 10.3 Immature Gran % 0.3 Neutrophils % 77.4 Lymphocytes % 15.4 Monocytes % 5.2 Eosinophils % 1.3 Basophils % 0.4 Nucleated RBC % 0.0 Absolute Neutrophils 8.12 H Absolute Lymphocytes 1.61 Absolute Monocytes 0.54 Absolute Eosinophils 0.14 Absolute Basophils 0.04 Sodium 138 Potassium 3.4 L Chloride 102 Carbon Dioxide 25.7 Anion Gap 10.3 BUN 4 L Creatinine 0.7 Est GFR (CKD-EPI 2020) 112.75 Glucose 72 L Calcium 8.5 Total Bilirubin 0.7 AST 13 L ALT 20 Alkaline Phosphatase 85 C-Reactive Protein 17.12 H Total Protein 6.6 Albumin 2.5 L ABO/Rh A Positive Antibody Screen NEGATIVE
[2025-04-05] MEDS: PIPERACILLIN/TAZO 4.5 GM in Normal Saline 100 ML IVPB ×2 (16:09→22:07)
--- NOTE | 2025-04-05 18:55 | W.PM.PROGNOT ---
Date of Service Date of service: 04/05/25 Time of Service: 17:30 Assessment and Plan Assessment and plan (1) Diverticulitis of intestine with abscess: Status: Acute Assessment and plan: NO abscess as per surgery -- DDx pelvic enteritis Blood cultures are negative Continue Zosyn. WBC trending down Ongoing surgical consult with Dr. Leiva: and OR this AM - please read notes -Infected left ovarian remnant (versus fallopian tube), causing localized left lower quadrant peritonitis and reactive ascites -BRAILLE OPERATOR consult again completed during OR - please read notes CT oral contrast: ascites in the abdomen and pelvis on going R ovary cyst Resume diet s/p OR and advance as tolreated NPO after midnight ongoing LR at lower rate - Laparoscopy exploration completed with infection control of the L oopherectomy site : please read notes labs in AM (2) Pelvic fluid collection: Status: Acute Assessment and plan: Please read OR notes 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 and compazine Continue IV PPI (6) Hypokalemia: Status: Acute Assessment and plan: Resolved BMP in AM (7) Tobacco abuse: Status: Acute Assessment and plan: PRN NRT (8) Anemia: Status: Chronic Assessment and plan: H&H 13 & 38 on 04/03 now 10.8 & 32 - might be dilutional to some extent repeat hemoglobin at 12.8 Stool for occult blood pending Reporting vaginal bleeding Iron study showing low iron level would benefit from IV iron CBC in AM (9) On deep vein thrombosis (DVT) prophylaxis: Status: Acute Assessment and plan: Ongoing SCD's MATIAS's Discussed with Dr. Gage Subjective Subjective Patient reports: pain is less, tolerating liquids well, tolerating a regular diet, voiding w/o difficulty, no flatus and no bowel movement; denies diarrhea, nausea, vomiting, shortness of breath or fever Exam Narrative Exam Narrative: Alert & oriented X3 , minimal abdominal pain at trochar site on the R abd - abdomen remains non-distended and soft , non- focal neurologically, clear lungs, S1 - S2 , no murmur, no CVA tenderness, Objective Last Vital Signs Temp 36.6 C 04/05/25 12:57 Pulse 67 04/05/25 12:57 Resp 15 04/05/25 12:57 BP 108/70 04/05/25 12:57 Pulse Ox 94 04/05/25 12:57 Laboratory Results - last 24 hr 04/04/25 04/05/25 06:42 06:20 WBC 10.48 RBC 3.97 Hgb 11.7 Hct 34.2 L MCV 86 MCH 29.5 MCHC 34.2 RDW 13.0 Plt Count 206 MPV 10.3 Immature Gran % 0.3 Neutrophils % 77.4 Lymphocytes % 15.4 Monocytes % 5.2 Eosinophils % 1.3 Basophils % 0.4 Nucleated RBC % 0.0 Absolute Neutrophils 8.12 H Absolute Lymphocytes 1.61 Absolute Monocytes 0.54 Absolute Eosinophils 0.14 Absolute Basophils 0.04 Sodium 138 Potassium 3.4 L Chloride 102 Carbon Dioxide 25.7 Anion Gap 10.3 BUN 4 L Creatinine 0.7 Est GFR (CKD-EPI 2020) 112.75 Glucose 72 L Calcium 8.5 Transferrin 116 L Total Bilirubin 0.7 AST 13 L ALT 20 Alkaline Phosphatase 85 C-Reactive Protein 17.12 H Total Protein 6.6 Albumin 2.5 L PAWSS Have you Been Recently Intoxicated or Drunk Within the Last 30 days?: No Have you Ever Experienced Previous Episodes of Alcohol Withdrawal?: No Have you ever Experienced Withdrawal Seizures?: No Have you ever Experienced Delirium Tremens(DT)s?: No Have you ever undergone Alcohol Rehabilitation Treatment (i.e, inpt ot outpatient treatment programs)?: No Have you ever Experienced Blackouts?: No Have you ever Combined Alcohol with other Downers within the last 90 days?: No Have you ever Combined Alcohol with any other Substance of Abuse during the last 90 days?: No Positive Blood Alcohol level on Presentation? [PCS.BAL]: No Evidence of Increased Autonomic Activity (i.e. HR>120, tremor, sweating, agitation, nausea)?: No Result: 0 Time Spent with Patient Time Spent with Patient: >50 minutes Time was spent: preparing to see the patient(eg.review tests), obtaining and/or reviewing separately otained hiistory, ordering medications,tests, procedures, referring, communicating with other health tree care foreman, indepentently interpreting results, counseling the patient and care coordination
[2025-04-05] MEDS: Gabapentin 300 MG CAP PO (20:26)
[2025-04-06 03:02] VITALS: BP 108/66; PULSE 45; RESP 18; TEMP 36.6; O2SAT 97
[2025-04-06 06:41] LABS: Abs Immature Grans 0.07 10^3/uL (0.0-0.06); HCT 34.8 % (36.0-46.0); HGB 11.8 g/dL (11.2-15.7); Immature Grans % 0.6 %; MCH 28.5 pg (27.0-33.0); MCHC 33.9 % (32.0-36.0); MCV 84 fL (80-95); MPV 10.1 fL (8.0-11.0); Platelet Count 239 10^3/uL (130-400); RBC 4.14 10^6/uL (3.93-5.22); RDW 13.0 % (11.7-14.6); RDW-SD 39.8 fL; WBC 12.35 10^3/uL (4.4-10.8)
[2025-04-06 06:57] LABS: ALT 22 U/L (14-59); AST 12 U/L (15-37); Albumin 2.5 g/dL (3.4-5.0); Alkaline Phosphatase 109 U/L (46-116); Anion Gap 7.3 mmol/L (3-11); BUN 8 mg/dL (7-18); Bilirubin, Total 0.3 mg/dL (0.2-1.0); CO2 28.7 mmol/L (21.0-32.0); Calcium 9.0 mg/dL (8.5-10.1); Chloride 103 mmol/L (98-107); Estimated GFR 117.02 (mL/min/1.73m2); Glucose 125 mg/dL (74-106); Potassium 3.5 mmol/L (3.5-5.1); Sodium 139 mmol/L (136-145); Total Protein 7.2 g/dL (6.4-8.2)
[2025-04-06 07:12] VITALS: BP 132/83; PULSE 59; RESP 16; TEMP 36.9; O2SAT 96
[2025-04-06] MEDS: Lactated Ringers 1,000 ML 75 ML IV (08:08)
[2025-04-06] MEDS: Pantoprazole 40 MG VIAL IVP (08:09)
--- NOTE | 2025-04-06 08:36 | PDOC.CMPRO ---
Date of service: 04/06/25 Time of Service: 08:36 Social Determinants of Health Screening Will the Patient Participate in the Screening?: Declined to provide
[2025-04-06] MEDS: PIPERACILLIN/TAZO 4.5 GM in Normal Saline 100 ML IVPB (09:22)
--- NOTE | 2025-04-06 09:49 | PDOC.CMDIS ---
Date of service: 04/06/25 Time of Service: 09:49 LACE Index Scoring Tool Questions: Length of Stay (in days): 3 Was the patient admitted via the E.D.?: Yes E.D. Visits: 1 Answers: Total Score: 7 Risk of Readmission: Low Risk Care Management Discharge Plan Reason for Hospitalization: Diverticulitis, pelvic fluid collection Discharge Plan: Kanika is being discharged to the community and is advised to follow up with primary care provider post-discharge. Kanika will be transported via private vehicle with her friend Rubén. No new services were ordered at the time of discharge. Recommend outpatient follow-up with [facility] and establish care with a PCP locally, if she is planning to relocate. Patient/Family Education Needs: Review discharge instructions and plan to follow up after discharge. Discuss ask me three.
--- NOTE | 2025-04-06 11:53 | W.PM.PROGNOT ---
Date of Service Date of service: 04/06/25 Time of Service: 10:00 Assessment and Plan Assessment and plan (1) Abdominal fluid collection: Status: Acute Assessment and plan: At time of surgery an inflamed and infected ovarian remnant vs fallopian tube identified in LLQ encased with omentum, and causing localized peritonitis around sigmoid colon. Mass removed and sent for pathology. She appears well today. Let's send her home. Please send on 7 days of levaquin and flagyl PO. Have her see us in clinic in 2 weeks. No heavy lifting greater than 15 lbs for 4 weeks from surcal date (04/05/25). Subjective Subjective Interval history since last seen: Minimal pain today, feels, tight, in her umbilical region. Ambulating yesterday. Would like to go home today. Exam Narrative Exam Narrative: Adult FM, appearing comfortable, pain minimal. present in room at time of visit and exam. Vitals are normal. Abdomen, dressings from surgery are clean. Abdomen is soft, non-distended, minimal tenderness. Objective Last Vital Signs Temp 36.9 C 04/06/25 07:12 Pulse 59 L 04/06/25 07:12 Resp 16 04/06/25 07:12 BP 132/83 04/06/25 07:12 Pulse Ox 96 04/06/25 07:12 Laboratory Results - last 24 hr 04/04/25 04/06/25 06:42 06:25 WBC 12.35 H RBC 4.14 Hgb 11.8 Hct 34.8 L MCV 84 MCH 28.5 MCHC 33.9 RDW 13.0 Plt Count 239 MPV 10.1 Immature Gran % 0.6 Neutrophils % 86.7 Lymphocytes % 7.9 Monocytes % 4.5 Eosinophils % 0.2 Basophils % 0.1 Nucleated RBC % 0.0 Absolute Neutrophils 10.71 H Absolute Lymphocytes 0.98 L Absolute Monocytes 0.56 Absolute Eosinophils 0.02 Absolute Basophils 0.01 Sodium 139 Potassium 3.5 Chloride 103 Carbon Dioxide 28.7 Anion Gap 7.3 BUN 8 Creatinine 0.6 Est GFR (CKD-EPI 2020) 117.02 Glucose 125 H Calcium 9.0 Transferrin 116 L Total Bilirubin 0.3 AST 12 L ALT 22 Alkaline Phosphatase 109 Total Protein 7.2 Albumin 2.5 L PAWSS Have you Been Recently Intoxicated or Drunk Within the Last 30 days?: No Have you Ever Experienced Previous Episodes of Alcohol Withdrawal?: No Have you ever Experienced Withdrawal Seizures?: No Have you ever Experienced Delirium Tremens(DT)s?: No Have you ever undergone Alcohol Rehabilitation Treatment (i.e, inpt ot outpatient treatment programs)?: No Have you ever Experienced Blackouts?: No Have you ever Combined Alcohol with other Downers within the last 90 days?: No Have you ever Combined Alcohol with any other Substance of Abuse during the last 90 days?: No Positive Blood Alcohol level on Presentation? [PCS.BAL]: No Evidence of Increased Autonomic Activity (i.e. HR>120, tremor, sweating, agitation, nausea)?: No Result: 0 Time Spent with Patient Time Spent with Patient: <25 minutes Time was spent: preparing to see the patient(eg.review tests), indepentently interpreting results and counseling the patient
--- NOTE | 2025-04-06 12:14 | DSE_ITS ---
Date of service: 04/06/25 Time of Service: 12:14 DS: Diagnosis Discharge Diagnosis (1) Abdominal fluid collection: Status: Acute Discharge Plan Disposition Patient Disposition: Home Condition: Improving Discharge Details Reason For Visit: diverticulitis Admit Date/Time: 04/03/25 00:01 Admit Provider: Franko Glass Attending Provider: Franko Glass [facility] Hospital Course: This is a 39-year-old female patient with a past medical history of cholecystectomy, appendectomy and left oopherectomy for ovarian desmoid tumor, ruptured right ovarian cyst presented to the ED on 04/02/25 for 5 days of nausea, vomiting and abdominal pain. Workup in the ED pointed to working diagnosis of diverticulitis with possible abscess. The patient was admitted for ongoing IVF, IV antibiotic treatment and general surgery consultation. Surgical consult by Dr. Leiva resulting in determination of possible pelvic enteritis with subsequent laparoscopy with findings of and inflamed and infected ovarian remnant vs fallopian tube in LLQ encased with omentum, causing localized peritonitis around sigmoid colon. On 04/05/25: resection of the mass was completed and specimen sent for pathology. Gynecology consultation completed w/o recommendation for acute interventions. On 04/06/25 the patient was afebrile , hemodynamically stable, clinically improved and tolerating enteral intake. Due to listed allergy to Cipro with rash and swelling, the patient could not be sent home on Levaquin as per Dr. Leiva's recommendation; s/p discussion, the patient will be discharge home with cefixime and metronidazole for 7 days. The patient requesting liquid medicine d/t difficulty swallowing pills. Follow- up with surgery in 2 weeks and follow-up outpatient provider within 7 days of discharge. Discussed with Dr. Gage Home Meds and New Rx's Prescriptions: New hydromorphone 2 mg Tablet 1 mg PO Q6H PRNQty: 10 0RF acetaminophen 500 mg/15 mL liquid 1,000 mg PO Q6H Qty: 237 0RF Rx Instructions: for 3 days then PRN docusate sodium 50 mg/5 mL liquid 100 mg PO TID Qty: 473 0RF Rx Instructions: Take PRN ( only as needed) after you have a bowel movement cefixime 100 mg/5 mL suspension for reconstitution 400 mg PO Q24H Qty: 140 0RF metronidazole 500 mg/5 mL suspension 500 mg PO TID Qty: 105 0RF Continued Mirena 1 EACH intrauterine device 1 unit VG DAILY permethrin 60 GM cream 60 gm Topical DIRECTED Qty: 1 0RF Rx Instructions: Applied to diffuse body from the chin down, leave on 8 hours then rinse. Repeat in 2 weeks time. Discharge Instructions Referrals: [facility] [Provider Group] Referral Note: Follow-up in 2 weeks please No,Local [Primary Care Provider, Unknown] Referral Note: Follow-up within 7 days of discharge Activity:: Activity as Tolerated Equipment/Supplies:: No Equipment Needed Diet:: As Tolerated Discharge Orders Discharge Orders: Discharge Order (Routine); Ordered 04/06/25 Ordered By: Sari Real DS: Summary Time Spent with Patient providing and/or coordinating discharge services: Greater than 30 minutes Status at Discharge Functional status at discharge: independent ambulation Overall status at discharge: patient is progressing back to baseline Mental Status: mental status grossly normal Speech and Movement: speech and movement normal Mood: congruent mood Affect: normal affect Exam Narrative Exam Narrative: Alert & oriented X3 , non- focal neurologically, unlabored breathing, clear lungs but minimal coughing with deep breathing, S1 - S2 regular , no swelling to ext minimal abdominal pain at umbilical trochar site - abdomen is non- distended and soft , bowel sounds are present, , no CVA tenderness, Psych Mental Status: mental status grossly normal Speech and Movement: speech and movement normal Mood: congruent mood Affect: normal affect DS: Data Vitals/I&O Vitals and I&O: Vital Signs Temperature 36.9 C 04/06/25 07:12 Temperature Source Temporal Artery Scan 04/06/25 07:12 Pulse 59 L 04/06/25 07:12 Pulse Rhythm Regular 04/03/25 01:08 Pulse 62 04/05/25 11:02 Respiratory Rate 16 04/06/25 07:12 Respiratory Effort Normal, Non-Labored 04/03/25 01:08 Respiratory Depth Normal 04/03/25 01:08 Respiratory Pattern Normal 04/02/25 21:16 Blood Pressure 132/83 04/06/25 07:12 Blood Pressure Mean 99 04/06/25 07:12 Blood Pressure Position Supine 04/02/25 21:16 Pulse Oximetry 96 04/06/25 07:12 Respiratory End-tidal CO2 35 04/05/25 11:02 Oxygen Delivery Method Room Air 04/06/25 07:12 Oxygen Flow Rate 0 04/06/25 07:12 Pain Level 4 04/06/25 09:06 Comment Bout of N/V given Zofran 04/04/25 21:01 Intake & Output 04/05/25 04/06/25 04/06/25 23:59 11:59 23:59 Intake Total 1249 / 1859 1313.75 / 1313.75 Output Total 400 / 720 Balance 849 / 1139 1313.75 / 1313.75 Intake: IV 1249 / 1859 1093.75 / 1093.75 Oral 220 / 220 Output: Urine 400 / 700 Other: Urine Color Yellow Urine Appearance Clear Urine Odor Normal Data Completed and Pending Labs on day of discharge: Labs from last 24 hours 04/06/25 04/04/25 06:25 06:42 WBC 12.35 H RBC 4.14 Hgb 11.8 Hct 34.8 L MCV 84 MCH 28.5 MCHC 33.9 RDW 13.0 Plt Count 239 MPV 10.1 Immature Gran % 0.6 Neutrophils % 86.7 Lymphocytes % 7.9 Monocytes % 4.5 Eosinophils % 0.2 Basophils % 0.1 Nucleated RBC % 0.0 Absolute Neutrophils 10.71 H Absolute Lymphocytes 0.98 L Absolute Monocytes 0.56 Absolute Eosinophils 0.02 Absolute Basophils 0.01 Sodium 139 Potassium 3.5 Chloride 103 Carbon Dioxide 28.7 Anion Gap 7.3 BUN 8 Creatinine 0.6 Est GFR (CKD-EPI 2020) 117.02 Glucose 125 H Calcium 9.0 Transferrin 116 L Total Bilirubin 0.3 AST 12 L ALT 22 Alkaline Phosphatase 109 Total Protein 7.2 Albumin 2.5 L Preliminary micro results at discharge 04/03/25 14:20 Blood Blood Culture - Preliminary NO GROWTH 48 HOURS 04/03/25 14:30 Blood Blood Culture - Preliminary NO GROWTH 48 HOURS PFS All Active Problems (Updated 04/06/25 @ 13:14 by Sari Real APRN) Pelvic inflammation in female (Acute) History of left oophorectomy (Acute) Pelvic fluid collection (Acute) Anemia (Chronic) Pelvic pain (Acute) Nausea & vomiting (Acute) Abdominal fluid collection (Acute) Abdominal pain (Acute) Hypotension (Acute) On deep vein thrombosis (DVT) prophylaxis (Acute) Sepsis (Acute) Tobacco abuse (Acute) Hypokalemia (Acute) Nausea (Acute) Diverticulitis of intestine with abscess (Acute) RLQ abdominal pain (Acute) Vaginal delivery (Acute 05/30/13) Surgical History Appendectomy (02/06/17) Social History Smoking/Tobacco Use Status: Former Tobacco Use Smoking risk assessment performed?: Yes Drug use: Never Housing: house Do you feel safe in your relationship?: Yes History History Para 2 Hx # Term Pregnancies Multiple births Hx # Pregnancies Ectopic pregnancies AB induced Hx Number of Living Children AB spontaneous Time Spent with Patient Time Spent with Patient: >85 minutes Time was spent: preparing to see the patient(eg.review tests), obtaining and/or reviewing separately otained hiistory, ordering medications,tests, procedures, referring, communicating with other health pharmacy care coordinator, indepentently interpreting results, counseling the patient and care coordination
[2025-04-06] MEDS: HYDROmorphone 2 MG TAB 1 MG PO (12:49)
[2025-04-06] MEDS: Docusate Sodium 100 MG CAP PO (12:49)
== END 2025-04-06 14:19 | disposition home or self-care (01) | DRG 742 ==
LOC: ER 04-03 00:17 → MS 04-03 00:42
PROVIDERS: Surgery; Admitting Provider Hospitalist; Emergency Provider Emergency Medicine; Responsible Provider Nurse Practitioner Acute Care; Visit Provider Hospitalist
PROC: 0UB14ZZ Excision of Left Ovary, Percutaneous Endoscopic Approach (ICD-10-PCS; CPT 49320; principal; 2025-04-05 07:30)
DX: N73.0 Acute parametritis and pelvic cellulitis (principal); K65.8 Other peritonitis; R18.8 Other ascites; D64.9 Anemia, unspecified; N73.6 Female pelvic peritoneal adhesions (postinfective); R11.0 Nausea; E87.6 Hypokalemia; R11.2 Nausea with vomiting, unspecified; R10.2 Pelvic and perineal pain; I95.9 Hypotension, unspecified; Z87.891 Personal history of nicotine dependence; N70.01 Acute salpingitis
CPT/HCPCS: 58661; 00123; 36415; 80053; 83690; 85027; 86850; 86900; 86901; 87040; 88305; 96361; 96365; 96375; 96376; 99285; 74176; 74177; 81003; 81015; 82272; 82728; 83540; 83550; 83605; 83735; 84466; 84703; 85025; 86140; 99222; 99233; 99239; J0131; J0665; J0690; J1100; J1171; J1885; J2003; J2250; J2270; J2405; J2470; J2543; J2704; J3010; J3475; J3480; J3490; Q9967

== ENCOUNTER 2025-05-12 14:18 | Emergency (ER) | payer SELFPAY ==
[2025-05-12 14:20] VITALS: BP 103/74; PULSE 108; RESP 16; TEMP 36.5; O2SAT 98
--- NOTE | 2025-05-12 14:30 | DI.CT_ITS ---
Exam(s) CT ABDOMEN PELVIS W EXAM: CT ABDOMEN PELVIS W CLINICAL HISTORY: right lower abdominal pain. TECHNIQUE: Imaging Protocol: Axial computed tomography images with coronal and sagittal reformatted images were created and reviewed CONTRAST MATERIAL: Intravenous: Omnipaque-350 75cc Oral: None COMPARISON: CT CT ABDOMEN PELVIS WO from 04/04/2025 FINDINGS: VISUALIZED LUNG BASES: No nodules nor pleural effusions evident. ABDOMEN: There is no ascites in the upper abdomen. LIVER: There are no focal hepatic lesions evident. No dilated intrahepatic ducts. GALLBLADDER/BILIARY: Gallbladder is again noted be surgically absent. The CBD is not dilated. PANCREAS: No evidence of pancreatic mass nor dilatation of the pancreatic duct. SPLEEN: Spleen size is upper normal, measuring 13 cm. No splenic lesions evident. Splenic and portal veins are patent. ADRENALS: There are no significant adrenal masses. KIDNEYS:No cysts evident. No solid renal masses. No calculi nor hydronephrosis.. ABDOMINAL AORTA: Abdominal aorta is not enlarged. LYMPH NODES:There is no retroperitoneal nor paraaortic adenopathy. ABDOMINAL WALL: No evidence of significant anterior abdominal wall nor inguinal hernia. GI: There is no evidence of bowel obstruction, free air, nor abscess. PELVIS: GI: The appendix is again not able to be identified as a distinct structure. There are no obvious secondary signs of acute appendicitis. There is some mild streaking again noted around the collapsed sigmoid but this streaking has significantly decreased when compared to prior CT scan of 04/04/2025. LYMPH NODES: There is no intrapelvic nor inguinal adenopathy. REPRODUCTIVE: There is an IUD again noted in the anteverted uterus. It appears to be in satisfactory position. There is a small amount of fluid adjacent to the right ovary. No significant findings in the left adnexa. URINARY BLADDER: Collapsed. Appears unremarkable. OSSEOUS: No fractures and no significant osseous lesions. IMPRESSION: 1. Compared to the prior CT scan of 04/04/2025 the amount of streaking in the region of the sigmoid colon has significantly decreased, as has the amount of ascites. There is been apparently interval surgery with removal of left fallopian tube and left ovary. 2. The appendix is again not able to be identified. Apparently there has been prior appendectomy. 3. Previous cholecystectomy again noted. Biliary tree is not dilated. 4. IUD is again noted in the uterus in satisfactory position. Small amount of fluid in the right adnexa adjacent to the upper normal size right ovary. The previously described 3 cm cyst in the right ovary appears more collapse on the present study in this small amount of fluid in the right adnexa cul-de-sac. Suspect that there has been right ovarian cyst rupture. Findings called by myself to ER physician 05/12/2025 at 3:37 p.m. RADIATION DOSE DELIVERED: 285.34mGy.cm Total DLP DATA REPOSITORY: All CT scans at this facility are submitted to the National Radiology Data Registry (NRDR) Dose Index Registry (DIR) with the [employer] (ACR). RADIATION OPTIMIZATION: All CT scans at this facility use at least one of these dose optimization techniques: automated exposure control; mA and/or kV adjustment per patient size (includes targeted exams where dose is matched to clinical indication); or iterative reconstruction.
--- NOTE | 2025-05-12 14:38 | W.ED.GENAD ---
Discharge Plan Disposition Patient Disposition: Home Condition: Stable Discharge Details Clinical Impression: Abdominal pain Primary Care Provider: Kaylynn,Local ED Provider: Butch Peacock Home Meds and New Rx's Prescriptions: New ondansetron 4 mg tablet,disintegrating 4 mg PO Q8H PRN (Reason: nausea and vomiting) Qty: 30 0RF Continued Mirena 1 EACH intrauterine device 1 unit VG DAILY acetaminophen 500 mg/15 mL liquid 1,000 mg PO Q6H Qty: 237 0RF Rx Instructions: for 3 days then PRN docusate sodium 50 mg/5 mL liquid 100 mg PO TID Qty: 473 0RF Rx Instructions: Take PRN ( only as needed) after you have a bowel movement Discharge Instructions Additional Instructions: You have a small cyst that likely ruptured and could be causing your pain. You can take 1000 mg of acetaminophen and 600 mg of ibuprofen every 6 hours as needed. Follow-up with [facility] this week, call their office to arrange an appointment ([phone]). If you feel more ill or have new symptoms such as high fevers or persistent vomiting return to the emergency department for evaluation. HPI General Mode of arrival: ambulatory. Date/Time Provider Initiated Documentation: 05/12/25 14:19. Limitations to Documentation: no limitations. Information obtained by: patient. History of Present Illness 40 year old F presents to the emergency department with the chief complaint of right lower abdomen pain, nausea, vaginal bleeding, described as moderate, Quality is described as sharp, and is localized to the abdomen. Patient reports no radiation. Patient started experiencing this week(s) (2) and it has been constant. No relieving factors improve symptom(s), No exacerbating factors reported . Patient notes denies chest pain. Patient did receive the following treatments prior to arrival, none Related Data Home Medications ?Medication ?Instructions ?Recorded ?Confirmed levonorgestrel (Mirena) 1 unit VG DAILY 02/05/17 05/12/25 acetaminophen 500 mg/15 mL oral 1,000 mg (30 mL) PO Q6H #237 mL 04/06/25 05/12/25 liquid docusate sodium 50 mg/5 mL oral 100 mg (10 mL) PO TID #473 mL 04/06/25 05/12/25 liquid ondansetron 4 mg disintegrating 4 mg PO Q8H PRN nausea and 05/12/25 tablet vomiting #30 tabs Previous Rx's ?Medication ?Instructions ?Recorded acetaminophen 500 mg/15 mL oral 1,000 mg (30 mL) PO Q6H #237 mL 04/06/25 liquid docusate sodium 50 mg/5 mL oral 100 mg (10 mL) PO TID #473 mL 04/06/25 liquid ondansetron 4 mg disintegrating 4 mg PO Q8H PRN nausea and 05/12/25 tablet vomiting #30 tabs Allergies Allergy/AdvReac Type Severity Reaction Status Date / Time ciprofloxacin (From Cipro) Allergy Intermediate SWELLING/FACE Verified 05/12/25 14:22 ,RASH ORANGES Allergy Intermediate SWELLING,RA Uncoded 05/12/25 14:22 SH General Stated Complaint: [employer] LAMIN: 3 Review of Systems All systems reviewed & are unremarkable except as noted in HPI and below Constitutional Constitutional: Denies chills, Denies fever(s) and Denies weakness Cardiovascular Cardiovascular: Denies chest pain and Denies dyspnea Respiratory Respiratory: Denies cough and Denies dyspnea Gastrointestinal Gastrointestinal: Reports abdominal pain, Reports nausea and Denies vomiting Genitourinary Genitourinary: Reports abnormal vaginal bleeding Neurologic Neurologic: Denies weakness Exam Const General: no acute distress Orientation: alert [facility] Head: normal to inspection Ears: external ears normal General nose exam: external nose normal Mouth: moist mucous membranes Eyes General: appearance normal, both eyes and all related structures Neck Neck: normal visual inspection Resp Effort & Inspection: normal respiratory effort and able to speak in complete sentences Cardio Rate: regular rate GI Palpation: soft, not firm, no guarding and tender Skin General skin exam: no rashes or lesions noted Neuro General: patient alert and patient oriented x3 Extrem General: normal to inspection Psych Mental Status: mental status grossly normal Course Vital Signs Vital signs: Vital Signs Temperature 36.5 C 05/12/25 14:20 Pulse 108 H 05/12/25 14:20 Respiratory Rate 16 05/12/25 14:20 Blood Pressure 103/74 05/12/25 14:20 Pulse Oximetry 98 05/12/25 14:20 Temperature 36.5 C 05/12/25 14:20 Pulse 108 H 05/12/25 14:20 Respiratory Rate 16 05/12/25 14:20 Blood Pressure 103/74 05/12/25 14:20 Pulse Oximetry 98 05/12/25 14:20 Pain Level 8 05/12/25 14:20 Medical Decision Making 4-year-old female with a history of appendectomy, cholecystectomy, who had diverticulitis in the infected left-sided fallopian tube/ovary is removed surgically last month comes in with 2 weeks of vaginal bleeding and right lower abdominal pain. Denies any vomiting but has had nausea, no fevers or chills. She is stable on arrival, she has right lower quadrant tenderness without guarding otherwise no abdominal tenderness elsewhere. Given the location of the pain we will check a CBC, CMP and lipase and also CT abdomen pelvis. Patient's labs show mild low potassium so IV repletion ordered. Otherwise labs benign and hemoglobin improved to 13, was 11 last time was checked. CT shows improvement of stranding in the left lower abdomen. The cyst in the right ovary seems collapsed and likely ruptured cyst. Patient is stable. Discussed results with her and given reassuring workup I feel she is stable for discharge and to follow-up with human resources generalist this week. Return precautions given. Differential Diagnosis Differential Diagnosis: Colitis, dysfunctional uterine bleeding Medical Records Medical records reviewed: Yes I reviewed the patient's medical records. Lab Data Lab results reviewed: Yes I reviewed the patient's lab results. PFSH All Active Problems (Updated 05/12/25 @ 16:05 by Butch Peacock MD) Abdominal pain (Acute) History of left oophorectomy (Acute) Pelvic fluid collection (Acute) Anemia (Chronic) Pelvic pain (Acute) Nausea & vomiting (Acute) Sepsis (Acute) Tobacco abuse (Acute) RLQ abdominal pain (Acute) Vaginal delivery (Acute 05/30/13) Medical History (Updated 05/12/25 @ 16:05 by Butch Peacock MD) Pelvic inflammation in female Abdominal fluid collection Surgical History Appendectomy (02/06/17) Social History Smoking/Tobacco Use Status: Former Tobacco Use Smoking risk assessment performed?: Yes Drug use: Never Housing: house Do you feel safe in your relationship?: Yes History History Para 2 Hx # Term Pregnancies Multiple births Hx # Pregnancies Ectopic pregnancies AB induced Hx Number of Living Children AB spontaneous
[2025-05-12 14:49] LABS: Abs Immature Grans 0.02 10^3/uL (0.0-0.06); HCT 39.3 % (36.0-46.0); HGB 13.3 g/dL (11.2-15.7); Immature Grans % 0.2 %; MCH 28.1 pg (27.0-33.0); MCHC 33.8 % (32.0-36.0); MCV 83 fL (80-95); MPV 9.5 fL (8.0-11.0); Platelet Count 281 10^3/uL (130-400); RBC 4.74 10^6/uL (3.93-5.22); RDW 13.1 % (11.7-14.6); RDW-SD 39.3 fL; WBC 8.99 10^3/uL (4.4-10.8)
[2025-05-12] MEDS: Ketorolac 15 MG/ML VIAL IVP (14:52)
[2025-05-12] MEDS: Ondansetron 4 MG/2 ML VIAL IVP (14:52)
[2025-05-12 15:02] LABS: Glucose Negative (Negative)
[2025-05-12 15:07] LABS: HCG Qual (Serum) Negative
[2025-05-12 15:11] LABS: ALT 12 U/L (14-59); AST 11 U/L (15-37); Albumin 3.6 g/dL (3.4-5.0); Alkaline Phosphatase 60 U/L (46-116); Anion Gap 8.8 mmol/L (3-11); BUN 8 mg/dL (7-18); Bilirubin, Total 0.5 mg/dL (0.2-1.0); CO2 31.2 mmol/L (21.0-32.0); Calcium 9.2 mg/dL (8.5-10.1); Chloride 101 mmol/L (98-107); Estimated GFR 95.46 (mL/min/1.73m2); Glucose 91 mg/dL (74-106); Lipase 21 U/L (<78); Magnesium 2.2 mg/dL (1.8-2.4); Potassium 3.0 mmol/L (3.5-5.1); Sodium 141 mmol/L (136-145); Total Protein 8.5 g/dL (6.4-8.2)
[2025-05-12] MEDS: Normal Saline - Diluent 50 ML VIAL IJ (15:21)
[2025-05-12] MEDS: Omnipaque 350 MG/ML 100 ML BTL IJ (15:22)
[2025-05-12] MEDS: POTASSIUM CHLORIDE 10 MEQ/100 ML BAG 100 MEQ IV_INF (15:42)
[2025-05-12] MEDS: MORPHine IR 15 MG TAB, 4 TABS/BTL PO (16:34)
[2025-05-12 16:39] VITALS: BP 124/86; PULSE 74; RESP 16; O2SAT 99
== END 2025-05-12 16:40 | disposition home or self-care (01) ==
PROVIDERS: Emergency Provider Emergency Medicine
DX: R10.31 Right lower quadrant pain (principal); R11.0 Nausea; N83.201 Unspecified ovarian cyst, right side
CPT/HCPCS: 99284; 99285; 96374; 96375; 36415; 80053; 83690; 74177; 81003; 81015; 83735; 84703; 85025; J1885; J2405; J3480; J3490